=== PATIENT | female | born 2000 | race Caucasian/White ===

== ENCOUNTER → 2024-07-19 | Outpatient (CLI) | payer OTHER, SELFPAY ==
[2024-07-26 10:18] LABS: HPV Reflexed? NOT INDICATED
== END | disposition home or self-care (01) ==
LOC: LABSPEC 14:49
PROVIDERS: Referring Provider Obstetrics & Gynecology; Visit Provider Obstetrics & Gynecology
DX: Z12.4 Encounter for screening for malignant neoplasm of cervix (principal)
CPT/HCPCS: 88175; G0145

== ENCOUNTER → 2025-05-05 | Outpatient (CLI) | payer OTHER, SELFPAY ==
[2025-05-05 12:22] LABS: Hematocrit 44.3 % (37-47); Hemoglobin 14.9 g/dL (12.0-15.0); Immature Granulocytes Count 0.040 X10^3/uL (0.0-0.0); Mean Corp Hgb Conc 33.6 g/dL (32-36); Mean Corpuscular Volume 90.6 fL (81-99); Mean Platelet Vol. 11.3 fl (6.2-12.0); NRBC Flagged by Analyzer 0 % (0-5); Platelet Count 240 K/mm3 (150-450); RBC Distribution Width CV 11.7 % (11.6-14.6); RBC Distribution Width SD 38.7 fl (35.1-43.9); Red Blood Count 4.89 M/mm3 (4.2-5.4); White Blood Count 6.8 K/mm3 (4.4-11.0)
[2025-05-05 13:04] LABS: hCG Titer Quant., Serum < 1 mIU/mL (<9 non-preg)
[2025-05-05 13:12] LABS: AST(SGOT) 19 U/L (<=31); Alanine Aminotransfer ALT/SGPT 12 U/L (<=34); Albumin, Serum 4.8 g/dL (3.5-5.0); Alkaline Phosphatase 62 U/L (35-104); Anion Gap 11 (5-15); BUN 11 mg/dL (4-19); BUN/Creat Ratio 17.2 RATIO (10-20); Calcium,Total 10.1 mg/dL (7.6-11.0); Carbon Dioxide 25.6 mmol/L (21.0-32.0); Chloride 104 mmol/L (98-108); Follicle Stimulating Hormone 7.7 mIU/mL; Globulin 2.9 g/dL (2.2-4.2); Glucose 91 mg/dL (70-99); Potassium 4.0 mmol/L (3.3-5.1); Vitamin D,25 Hydroxy 44.7 ng/mL (30-100)
== END | disposition home or self-care (01) ==
PROVIDERS: Visit Provider Nurse Practitioner Family
DX: Z31.69 Encounter for other general counseling and advice on procreation (principal); Z13.29 Encounter for screening for other suspected endocrine disorder; N80.9 Endometriosis, unspecified; N91.2 Amenorrhea, unspecified
CPT/HCPCS: 36415; 80053; 82306; 82670; 83001; 83002; 84439; 84443; 84702; 85025

== ENCOUNTER → 2025-05-10 | Outpatient (CLI) | payer OTHER, SELFPAY ==
--- OUTSIDE RECORDS SUMMARY | 2025-05-10 10:14 | XMS RPT_ITS | CCD ---
Author Organization [facility] Inform ion Partnership [facility] Care Team Providers Care Analyst Name Role Phone Morris Leahy MD Primary Care Provider Cory Nye MD Primary Care Provider SELF, SELF Referring Unavailable CORY NYE Attending Unavailable MORRIS LEAHY Primary Care Unavailable SELF, SELF Referring Unavailable CORY NYE Primary Care Unavailable CORY NYE Attending Unavailable CORY NYE Primary Care Unavailable TREVON ORDAZ Attending Unavailable Unavailable Primary Care Provider Unavailkelsey e Kay LOWRY, Self Primary Care Provider Unavail able LATOSHA LEDESMA Attending Unavailable REFERRING, SELF Primary Care Unavailable Vivienne Baumann Attending UnavailVivienne Rojas Referring UnavailVivienne Rojas Attending Unavailabl LEANNA Muse Attending Unavailable Allergies Allergy Classification Reported Allergen(s) Allergy Type Date of Onset Reaction(s) Facility (2 sources) Amoxicillin / Clavulanate Drug Allergy 3 Rash, Swelling [facility] Work Phone: (2 sources) Penicillins; Translations: [PENICILLINS] Drug allergy (disorder) 5 [facility] Repository Medications Current Medications Medication Drug Class(es) Dates Sig (Normalized) Sig (Original) acetaminophen 325 mg / HYDROcodone bitartrate 5 mg oral tablet (5 sources) Opioid Agonist Start: 01-06-2022 End: 01-10-2022 take 1-2 tablets by mouth every six hours as needed hydroCODone-acetami nophen 5-325 MG tablet Indications: Pelvic and perineal pain Take 1-2 tablets by mouth every 6 hours as needed for up to 4 days. 20 tablet 0 01/06/2022 Active dicyclomine hydrochloride 10 mg oral capsule (5 sources) Anticholinergic Start: 01-07-2022 take 1 capsule by mouth four times daily as needed for muscle spasms dicyclomine 10 MG capsule Take 1 capsule by mouth 4 times daily as needed for Abdominal Spasms. 30 capsule 0 01/07/2022 Active elagolix 150 mg oral tablet (6 sources) Start: 07-10-2023 take 1 tablet by mouth once daily Elagolix Sodium (Orilissa) 150 MG tablet Indications: Endometriosis determined by laparoscopy Take 1 tablet by mouth daily. 30 tablet 11 07/10/2023 Active Start: 01-07-2022 Elagolix Sodiu m (Orilissa) 200 MG tablet Take 1 tablet by mouth daily. Quant: 4, Lot:[id number], Exp: 12/12/2022 1 tablet 0 01/07/2022 Active [id number] 0.3 ml EPINEPHrine 1 mg/ml auto-injector (2 sources) alpha-Adrenergic Agonist, beta-Adrenergic Agonist, Catecholamine Start: 06-05-2023 EPINEPHrine 0.3 MG/0.3ML Solution Auto-injector injection Inject contents of 1 autoinjector (0.3 mg) into thigh for allergic reactions (hives, lip/tongue/throat swelling, breathing trouble, lightheadedness, passing out or other symptoms of an allergic reaction) and seek medical attention immediately. If symptoms do not resolve after 5 min and still awaiting medical care, inject contents of a second autoinjector. 1 Each 0 06/05/2023 Active Ethinyl Estradiol / Ferrous fumarate / Norethindrone (1 source) Estrogen Start: 01-17-2024 take 1 tablet by mouth once daily norethindrone-ethinyl estradiol-ferrous fumarate (Junel Fe 24) 1 mg-20 mcg (24)/75 mg (4) per tablet Take 1 (one) tablet by mouth daily . 84 tablet 3 01/17/2024 Active ethinyl estradiol 0.02 mg / levonorgestrel 0.1 mg oral tablet (6 sources) Progestin, Estrogen, Progestin-containing Intrauterine Device Start: 01-28-2020 End: 02-04-2021 take 1 tablet by mouth once daily levonorgestrel-ethiny l estradiol 0.1-20 MG-MCG tablet Take 1 tablet by mouth daily. 84 tablet 3 02/04/2021 Active famotidine 40 mg oral tablet (3 sources) Histamine-2 Receptor Antagonist Start: 06-05-2023 take 1 tablet by mouth once daily famotidine 40 MG tablet Take 1 tablet by mouth daily. 20 tablet 0 06/05/2023 Active Start: 06-05-2023 End: 06-05-2023 famotidine (PF) (PEPCID) inj ection 20 mg fluconazole 150 mg oral tablet (3 sources) Azole Antifungal Start: 10-05-2023 fluconazole (DIFLUCAN) 150 MG tablet Take one today and repeat in 3 days . 2 tablet 10/05/2023 Active goserelin 10.8 mg drug implant (2 sources) Gonadotropin Releasing Hormone Receptor Agonist Start: 09-12-2022 End: 09-12-2022 inject 10.8 mg by subcutaneous injection once goserelin 10.8 MG Implant Inject 10.8 mg under the skin once for 1 dose. 1 Each 3 09/12/2022 Active hydrocortisone 25 mg/ml topical cream (2 sources) Corticosteroid Start: 06-05-2023 hydrocortisone 2.5 % Cream Apply BID to rash, Do not apply to genitals or face 20 g 0 06/05/2023 Active norethindrone 0.35 mg oral tablet (1 source) Start: 08-01-2022 take 1 tablet by mouth once daily Norethindrone 0.35 MG tablet Take 1 tablet by mouth daily. 84 tablet 3 08/01/2022 Active predniSONE 20 mg oral tablet (1 source) Start: 06-05-2023 End: 06-10-2023 take 2 tablets by mouth once daily predniSONE 20 MG tablet Take 2 tablets by mouth daily for 5 days. 10 tablet 0 06/05/2023 06/10/2023 Active Completed/Discontinued Medications Medication Drug Class(es) Dates Sig (Normalized) Sig (Original) 1 ml diphenhydrAMINE hydrochloride 50 mg/ml cartridge (1 source) Histamine-1 Receptor Antagonist Start: 06-05-20 End: 06-05-20 diphenhydrAMINE (BENADRYL) injection 50 mg 1 ml ketorolac tromethamine 15 mg/ml cartridge (1 source) Nonsteroidal Anti-inflammatory Drug, Cyclooxygenase Inhibitor Start: 06-05-20 End: 06-05-20 Ketorolac (TORADOL) injection 15 mg 1 ml medroxyPROGESTERone acetate 150 mg/ml injection (5 sources) Progestin Start: 11-27-19 End: 11-27-19 medroxyPROGESTERone (DEPO-PROVERA) injection 300 mg Start: 11-27-2023 End: 11-27-2023 medroxyPROGESTERone (DEPO-VT OVERA) injection 300 mg Start: 07-10-2023 inject 2 mL by intra muscular injection once medroxyPROGESTERone acetate 150 MG/ML Suspension Prefilled Syringe inj syringe Indications: Endometriosis determined by laparoscopy 2 ml every 10 week per intramuscular route 2 mL 4 07/10/2023 Active Start: 09-13-2022 End: 07-10-2023 medroxyPROGESTERone acetate 150 MG/ML Suspension Prefilled Syringe inj syringe Inject 2 mL intramuscularly every 90 Days. 2 mL 3 09/13/2022 07/10/2023 Discontinued (Reorder) methylPREDNISolone 125 mg injection (1 source) Corticosteroid Start: 06-05-2023 End: 06-05-2023 methylPREDNISolone Sodium Succ (SOLU-MEDROL) injection 125 mg 250 ml sodium chloride 9 mg/ml injection (1 source) Start: 06-05-2023 End: 06-05-2023 Sodium chloride 0.9% IV solution 1,000 mL Problems Active Problems Problem Classification Problem Date Documented Date Episodic/Chronic Abdominal pain (7 sources) Pelvic and perineal pain; Translations: [Pelvic and perineal pain] Onset: 09-02-2022 Episodic Allergic reactions (6 sources) Eruption due to drug; Translations: [Generalized skin eruption due to drugs and medicaments taken internally] Onset: 06-05-2023 06-05-2023 Episodic Endometriosis (8 sources) Endometriosis (clinical); Translations: [Endometriosis, unspecified] Onset: 09-02-2022 Chronic Genitourinary symptoms and ill-defined conditions (2 sources) Dysuria; Translations: [Dysuria] Onset: 04-15-2025 Episodic Immunizations and screening for infectious disease (2 sources) Patient encounter status; Translations: [Encounter for immunization] Episodic Menstrual disorders (6 sources) Dysmenorrhea; Translations: [Dysmenorrhea, unspecified] Onset: 09-02-2022 Chronic Other connective tissue disease (1 source) Muscle weakness; Translations: [Muscle weakness (generalized)] Episodic Other screening for suspected conditions (not mental disorders or infectious disease) (1 source) Encounter for screening for malignant neoplasm of cervix; Translations: [Encounter for screening for malignant neoplasm of cervix] Onset: 08-02-2024 Episodic Other skin disorders (1 source) Facial swelling ; Translations: [Localized swelling, mass and lump, head] 06-05-2023 Episodic Other skin disorders (2 sources) Localized swelling, mass and lump, head; Translations: [Localized swelling, mass and lump, head] Onset: 06-05-2023 Episodic Past or Other Problems Problem Classification Problem Date Documented Da te Episodic/Chronic Mood disorders (6 sources) Mood disorders Onset: 02-04-2021 Resolved: 02-04-2021 02-04-2021 Results Test Name Value Interpretation Reference Range Facility Bacteria Ur Culton 5 Bacteria identified Cx Nom (U) ORGANISM ID: 1 10,000 -<50,000 CFU/ml Normal urogenital iva Normal [facility] Comment on above: Performed By: #### 6 30-4 #### [facility] CLIA [id number] [address] [place] [address] OF [facility] CNOVon 04-15-2025 CNOV Office Visit ([facility]) BRITTANI YANG ([id number]) 1 F Date Time Provider Department 04/15/25 5:00 PM LEANNA HUFFMAN During your visit today, we recorded the following information about you: Temperature Pulse Respiration Blood pressure 97.1 degrees 72/minute 16/minute 98/62 Weight 69.8 kg Leanna Huffman APRN.VEGETABLE WASHER 04/15/2025 5:36 PM Signed [facility] Subjective Brittani Servin Celia is a 24 year old female. Patient presents with: Urinary Frequency: burning with urination x 3 days HPI The patient is a 24-year-old female with a history of endometriosis, presenting with dysuria and urinary frequency. Dysuria and Urinary Frequency: - Onset 3 days ago. - Currently taking Macrodantin, obtained in [place]; started on Monday, taking one dose in the morning and one at night. - Reports some improvement with medication but notes it is and feels progress is insufficient. - Denies fever, chills, nausea, or emesis. - Reports mild lower back pain; denies abdominal pain. - Previous similar episode resolved with Macrodantin. - Urine sample showed a small amount of blood, no WBCs. Endometriosis: - Reports irregular menstrual cycles, with the last period in January. - Not currently on control. - Possibility of ; has taken negative tests at home recently. Review of Systems Constitutional: (-) fever, (-) chills Gastrointestinal: (-) nausea, (-) vomiting, (-) abdominal pain Genitourinary: (+) urinary frequency, (+) dysuria Musculoskeletal: (+) low back pain Objective BP 98/62 Pulse 72 Temp 36.2 ?C (97.1 ?F) Resp 16 Wt 69.8 kg (153 lb 14.1 oz) SpO2 99% No past medical history on file. No past surgical history on file. ALLERGIES Penicillins MEDICATIONS - nitrofurantoin monohydrate and macrocrystal (MACROBID) 100 mg capsule Take 1 capsule by mouth two times a day for 5 days. No family history on file. SOCIAL HISTORY[1] Physical Exam Vitals and nursing note reviewed. Constitutional: General: She is not in acute distress. Appearance: Normal appearance. She is not ill-appearing. Cardiovascular: Rate and Rhythm: Normal rate and regular rhythm. Heart sounds: Normal heart sounds. Pulmonary: Effort: Pulmonary effort is normal. No respiratory distress. Breath sounds: Normal breath sounds. No wheezing or rales. Abdominal: General: There is no distension. Palpations: Abdomen is soft. There is no mass. Tenderness: There is no abdominal tenderness. There is no right CVA tenderness, left CVA tenderness or guarding. Skin: General: Skin is warm and dry. Neurological: Mental Status: She is alert. { 1. Urinary frequency (R35.0) 2. Dysuria (R30.0) - Acute urinary frequency and dysuria for 3 days; currently taking Macrodantin obtained in [place] with partial improvement. - Urinalysis shows a small amount of blood, no WBCs. - Urine culture ordered to confirm appropriate antibiotic coverage. - Start new prescription for Macrodantin for 5 days. - Advised patient to maintain adequate hydration. - Instructed patient to complete the full course of antibiotics unless otherwise notified by the clinic based on culture results. - Follow-up with your PCP in 3-5 days if symptoms have not improved or sooner if symptoms worsen - Discussed red flags and need for immediate medical evaluation if any occur. - Discussed supportive care treatment with fluids, rest and analgesia. - Discussed expected course of illness Leanna Huffman APRN.VEGETABLE WASHER and Recording using zealot network software for draft documentation of the visit was discussed with the patient/authorized representative government relations; all questions welcomed and answered. Patient/authorized representative government relations agreed to proceed Differential Diagnoses - UTI is more likely for the following reason(s): consistent with laboratory studies and suggested by HANDP - pyelonephritis is less likely for the following reason(s): HANDP not suggestive and laboratory studies not suggestive - nephrolithisis is less likely for the following reason(s): HANDP not suggestive and laboratory studies not suggestive Disposition The patient was discharged. Procedures [1] Leanna Huffman APRN.VEGETABLE WASHER 04/15/2025 5:36 PM Signed 1. Urinary frequency (R35.0) 2. Dysuria (R30.0) - Acute urinary frequency and dysuria for 3 days; currently taking Macrodantin obtained in [place] with partial improvement. - Urinalysis shows a small amount of blood, no WBCs. - Urine culture ordered to confirm appropriate antibiotic coverage. - Start new prescription for Macrodantin for 5 days. - Advised patient to maintain adequate hydration. - Instructed patient to complete the full course of antibiotics unless otherwise notified by the clinic based on culture results. - A new prescription for nitrofuran (more content not included)... Normal [facility] PAP I-G w/rfx hrHPV-Aptimaon 07-25-2024 ADEQ Comment Normal . [facility] Comment on above: Order Comment: Speci men Comment: [id number] Specimen Comment: No. of containers..01 ThinPrep Vial Result Comment: Sati sfactory for evaluation. No endocervical component is identified. Performed By: #### L 7400.0353 #### [facility] [address] [place], [place], [id number] COMM . Normal . [facility] Comment on above: Order Comment: Speci men Comment: [id number] Specimen Comment: No. of containers..01 ThinPrep Vial Performed By: #### L 7400.0353 #### [facility] [address] [place], [place], [id number] COMMENT Comment Normal . [facility] Comment on above: Order Comment: Speci men Comment: [id number] Specimen Comment: No. of containers..01 ThinPrep Vial Result Comment: This liquid based ThinPrep(R) pap test was screened with the use of an image guided system. Performed By: #### L 7400.0353 #### [facility] [address] [place], [place], [id number] DIAG Comment Normal . [facility] Comment on above: Order Comment: Speci men Comment: [id number] Specimen Comment: No. of containers..01 ThinPrep Vial Result Comment: NEGA TIVE FOR INTRAEPITHELIAL LESION OR MALIGNANCY. FUNGAL ORGANISMS MORPHOLOGICALLY CONSISTENT WITH DARRIUS SPECIES ARE PRESENT. THIS SPECIMEN WAS RESCREENED PART OF OUR ART CONSERVATOR PROGRAM. Performed By: #### L 7400.0353 #### [facility] [address] [place], [place], [id number] HPV RFLX Comment Normal . [facility] Comment on above: Order Comment: Speci men Comment: [id number] Specimen Comment: No. of containers..01 ThinPrep Vial Result Comment: The HPV DNA reflex criteria were not met with this specimen result therefore, no HPV testing was performed. Performed at: [address] [id number] Underwriting Sales Representative: Martina Padilla MD, Phone: [phone] Performed at: [facility] [address] [place] [id number] Underwriting Sales Representative: Alida Maldonado PhD, Phone: [phone] Performed By: #### L 7400.0353 #### [facility] [address] [place], [place], [id number] PAPSMR Comment Normal . [facility] Comment on above: Order Comment: Speci men Comment: [id number] Specimen Comment: No. of containers..01 ThinPrep Vial Result Comment: The Pap smear is a screening test designed to aid in the detection of premalignant and malignant conditions of the uterine cervix. It is not a diagnostic procedure and should not be used as the sole means of detecting cervical cancer. Both false-positive and false-negative reports do occur. Performed By: #### L 7400.0353 #### [facility] [address] [place], [place], [id number] PERFORM Comment Normal . [facility] Comment on above: Order Comment: Speci men Comment: [id number] Specimen Comment: No. of containers..01 ThinPrep Vial Result Comment: Muna Crooks, Collection Correspondent (ASCP) Performed By: #### L 7400.0353 #### [facility] [address] [place], [place], [address] QC REV Comment Normal . [facility] Comment on above: Order Comment: Speci men Comment: [id number] Specimen Comment: No. of containers..01 ThinPrep Vial Result Comment: Anna Obrien Collection Correspondent (ASCP) Performed By: #### L 7400.0353 #### [facility] [address] [place], [place], [address] [employer] Office Visit Reporton 07-19-2024 [employer] Office Visit Report [facility] [address], [address] [place] [address] OFFICE VISIT Date of Service: 07/19/24 MR#: [id number] Acct: [id number] Name: BRITTANI YANG Rep #: [id number] : 2000 Provider: Dr. 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 Is patient in pain?: No Allergies Penicillins Allergy (Mild, Verified 07/19/24 11:34) Hives Medications ???Medication ???Instructions ???Recorded ???Confirmed ???Type norethindrone 1 mg-ethinyl 1 tab PO QDAY #84 tabs 07/19/24 Rx estradiol 20 mcg (24)-iron 75 mg (4) tablet (Светлана 24 Fe) valacyclovir 500 mg tablet 500 mg PO QDAY PRN outbreak #30 07/19/24 Rx (Valtrex) tabs Post menopausal: No Patient : No : No PFSH Medical History (Updated 07/19/24 @ 11:36 by Mary Brush) Endometriosis Genital herpes Surgical History (Updated 07/19/24 @ 11:37 by Mary Brush) S/P laparoscopic appendectomy Social History (Updated 07/19/24 @ 11:38 by Mary Brush) Smoking Status: Never smoker alcohol intake: current details: occasionally substance use type: does not use caffeine: Yes what type of physical activity do you participate in: walking frequency: 3-4 times per week seatbelt use: always do you feel safe at home: Yes additional social history: - Dev History 0 Elective abortions Hx Para Spontaneous abortions Hx # Term Pregnancies Ectopic pregnancies Hx # Pregnancies Multiple births # of living children HPI Encounter for routine gynecological examination Details: BRITTANI YANG is a 23 year old who presents for annual exam. new patient has endometriosis and on ocps. she wants refill in pill and refill in valtrex. Last PAP: 2021 History of abnormal PAP: no Last mammogram: never History of abnormal mammogram: n/a Colon cancer screening: n/a Other preventative health care screenings: followed by pcp Female Reproductive History Cycle Length: 21-35 Bleeding Duration: 5 Questions: metorrhagia: No, sexually active: Yes, dyspareunia: No and PCB: No Menopausal Symptoms: No hot flashes, No night sweats, No weight change, No mood changes, No difficulty concentrating, No sleep problems and No change in libido ROS Const Constitutional: Reports as per HPI; Denies fatigue, increased appetite, poor appetite, night sweats, weight gain or weight loss Cardio Card: Denies chest pain Resp Resp: Denies cough or dyspnea GI GI: Reports as per HPI; Denies abdominal pain, bloating, constipation, nausea or vomiting : Reports as per HPI and other; Denies difficulty voiding, dysuria, hematuria, hot flashes, nipple discharge, pelvic pain, prolapse symptoms, urinary frequency, urinary incontinence, urinary urgency, vaginal discharge, vaginal dryness, vaginal odor or vaginal pruritus Skin Skin/Breast: Denies changing lesions, breast mass, breast pain, breast skin changes or nipple discharge Psych Psych: Denies anxiety, change in libido, depression or difficulty concentrating Exam Const General: cooperative, healthy appearing, comfortable, no acute distress, well developed and well groomed HENIN Head: normal to inspection and normocephalic Ears: hearing grossly normal bilaterally and external ears normal Nose: external nose normal Face and sinus: normal facial exam Neck Neck: normal visual inspection, full ROM and no lymphadenopathy Thyroid: thyroid normal Chest Chest palpation inspection: normal inspection of the chest Breast inspection: normal inspection of the breasts and normal inspection of the axillae Breast palpation: normal palpation of the breasts, normal palpation of the axillae and no axillary lymphadenopathy Resp Effort Inspection: normal respiratory effort GI Inspection: normal to inspection and non-distended Palpation: soft, no hepatosplenomegaly and no guarding General: bladder normal to palpation External Female Exam: normal external appearance, normal appearance of the urethra and no lesions Urethra: normal appearance of the urethra and normal palpation Speculum Exam - Vagina: normal appearance of the vagina and normal vaginal discharge Speculum Exam - Cervix: normal appearance of the cervix, no cervical discharge, no lesions and nontender Bimanual Exam- Vagina Uterus: normal bimanual exam, uterine size normal, bladder normal to palpation, No tender, uterine mobility normal, consistency normal, non-tender and no cervical motion tenderness Bimanual Exam- Adnexa, other: normal adnexae, no masses and non-tend (more content not included)... Normal [facility] CBC, EDIF, PLATELETon 2022 Basophils/100 WBC (Bld) 0.4 % 0.0 - 3.0 % [employer] Eosinophils/100 WBC (Bld) 1.4 % 0.0 - 4.0 % [employer] Erythrocyte distribution width (RBC) [Ratio] 12.4 % 11.5 - 14.5 % [employer] Hematocrit (Bld) [Volume fraction] 43.4 % 37.0 - 47.0 % [employer] Hemoglobin (Bld) [Mass/Vol] 14.8 g/dL 12.0 - 16.0 g/dL [facility] [employer] Lymphocytes/100 WBC (Bld) 12.2 % Low 17.6 - 49.6 % [employer] MCH (RBC) [Entitic mass] 30.5 pg 28.0 - 32.0 pg [facility] [facility] MCHC (RBC) [Mass/Vol] 34.1 g/dL 33.0 - 37.0 g/dL [employer] MCV (RBC) [Entitic vol] 89.5 fL 81.0 - 99.0 fL [facility] Monocytes/100 WBC (Bld) 7.9 % 4.1 - 12.4 % [facility] [employer] Neutrophils/100 WBC (Bld) 78.1 % High 39.4 - 72.5 % [facility] [facility] Platelets (Bld) [#/Vol] 233 10*3/uL [facility] [employer] [facility] RBC (Bld) [#/Vol] 4.85 10*6/uL [facility] SCAN SLIDE NO NO [facility] [employer] [facility] WBC (Bld) [#/Vol] 9.6 10*3/uL [facility] COMPREHENSIVE METABOLIC PROF ILE Noel 06-05-2023 Albumin BCG dye [Mass/Vol] 3.9 g/dL 3.5 - 5.0 g/dL [facility] [facility] Albumin/Globulin [Mass ratio] 1.1 {ratio} Low 1.2 - 1.5 [employer] ALP [Catalytic activity/Vol] 56 U/L 38 - 126 U/L [facility] ALT No additional P-5'-P [Catalytic activity/Vol] 15 U/L 7 - 35 U/L [facility] Anion gap [Moles/Vol] 12.8 mmol/L [facility] AST [Catalytic activity/Vol] 25 U/L 10 - 42 U/L [facility] Bilirubin [Mass/Vol] 1.7 mg/dL High 0.3 - 1.2 mg/dL [facility] Calcium [Mass/Vol] 9.1 mg/dL 8.4 - 10. 2 mg/dL [facility] Chloride [Moles/Vol] 107 mmol/L [facility] CO2 [Moles/Vol] 23 mmol/L [facility] Creatinine [Mass/Vol] 0.9 mg/dL 0.4 - 1.1 mg/dL [facility] GFR/1.73 sq M.predicted MDRD (S/P/Bld) [Vol rate/Area] mL/min/{1.73_m2} [facility] Comment on above: Estimated Glomerular filtration Rate Reference Ranges: GFR, mL/min/1.73m2 >= 60 Adequate 30 - 59 Moderately decreased GFR 15 - 29 Severely decreased GFR <18 Kidney failure (or dialysis) GFR calculated using abbreviated MDRD formula. MDRD equation not suitable for patients who are under 18, have unstable creatinine concentrations Globulin (S) [Mass/Vol] 3.4 g/dL High 2.9 - 3.3 g/dL [facility] Glucose [Mass/Vol] 146 mg/dL High 70 - 126 mg/dL [facility] Comment on above: Reference Range for FASTING patients is 70-100 mg/dL Potassium [Moles/Vol] 3.8 mmol/L [facility] Protein [Mass/Vol] 7.3 g/dL 6.4 - 8.3 g/dL [facility] Sodium [Moles/Vol] 139 mmol/L [facility] Urea nitrogen [Mass/Vol] 19 mg/dL 7 - 22 mg/dL [facility] Complete Blood Counton 06-05 Basophils/100 WBC (Bld) 0.4 % Normal 0.0-3.0 [facility] Comment on above: Performed By: #### 1 [id number], [id number] #### [facility] [address] [place] [address] Eosinophils/100 WBC (Bld) 1.4 % Normal 0.0-4.0 [facility] Comment on above: Performed By: #### 1 [id number], [id number] #### [facility] [address] [place] [address] Erythrocyte distribution width (RBC) [Ratio] 12.4 % Normal 11.5-14.5 [facility] Comment on above: Performed By: #### 1 [id number], [id number] #### [facility] [address] [place] [address] Hematocrit (Bld) [Volume fraction] 43.4 % Normal 37.0-47.0 [facility] Comment on above: Performed By: #### 1 [id number], [id number] #### [facility] [address] [place] [address] Hemoglobin (Bld) [Mass/Vol] 14.8 g/dL Normal 12.0-16.0 [facility] Comment on above: Performed By: #### 1 [id number], [id number] #### [facility] [address] [place] [address] Lymphocytes/100 WBC (Bld) 12.2 % Low 17.6-49.6 [facility] Comment on above: Performed By: #### 1 [id number], [id number] #### [facility] [address] [place] [address] MCH (RBC) [Entitic mass] 30.5 pg Normal 28.0-32.0 [facility] Comment on above: Performed By: #### 1 [id number], [id number] #### [facility] [address] [place] [address] MCHC (RBC) [Mass/Vol] 34.1 g/dL Normal 33.0-37.0 [facility] Comment on above: Performed By: #### 1 [id number], [id number] #### [facility] [address] [place] [address] MCV (RBC) [Entitic vol] 89.5 fL Normal 81.0-99.0 [facility] Comment on above: Performed By: #### 1 [id number], [id number] #### [facility] [address] [place] [address] Monocytes/100 WBC (Bld) 7.9 % Normal 4.1-12.4 [facility] Comment on above: Performed By: #### 1 [id number], [id number] #### [facility] [address] [place] [address] Neutrophils/100 WBC (Bld) 78.1 % High 39.4-72.5 [facility] Comment on above: Performed By: #### 1 [id number], [id number] #### [facility] [address] [place] [address] PLT 233 thou/cumm Normal 130-400 [facility] Comment on above: Performed By: #### 1 [id number], [id number] #### [facility] [address] [place] [address] RBC 4.85 mil/cumm Normal 4.20-5.40 [facility] Comment on above: Performed By: #### 1 [id number], [id number] #### [facility] [address] [place] [address] SCAN NO Normal NO [facility] Comment on above: Performed By: #### 1 [id number], [id number] #### [facility] [address] [place] [address] WBC 9.6 thou/cumm Normal 4.8-10.8 [facility] Comment on above: Performed By: #### 1 [id number], [id number] #### [facility] [address] [place] [address] Comprehensive Metabolic Prof luis carlos Cohen 06-05-2023 Albumin [Mass/Vol] 3.9 g/dL Normal 3.5-5.0 [facility] Comment on above: Performed By: #### 1 750505, [id number] #### [facility] [address] [place] [address] Albumin/Globulin [Mass ratio] 1.1 {ratio} Low 1.2-1.5 [facility] Comment on above: Performed By: #### 1 [id number], [id number] #### [facility] [address] [place] [address] ALP [Catalytic activity/Vol] 56 U/L Normal 38-126 [facility] Comment on above: Performed By: #### 1 [id number], [id number] #### [facility] [address] [place] [address] ALT [Catalytic activity/Vol] 15 U/L Normal 7-35 [facility] Comment on above: Performed By: #### 1 [id number], [id number] #### [facility] [address] [place] [address] Anion gap [Moles/Vol] 12.8 mmol/L Normal 10.0-20.0 [facility] Comment on above: Performed By: #### 1 638157, [id number] #### [facility] [address] [place] [address] AST [Catalytic activity/Vol] 25 U/L Normal 10-42 [facility] Comment on above: Performed By: #### 1 [id number], [id number] #### [facility] [address] [place] [address] BILI 1.7 mg/dL High 0.3-1.2 [facility] Comment on above: Performed By: #### 1 [id number], [id number] #### [facility] [address] [place] [address] Calcium [Mass/Vol] 9.1 mg/dL Normal 8.4-10.2 [facility] Comment on above: Performed By: #### 1 [id number], [id number] #### [facility] [address] [place] [address] Chloride [Moles/Vol] 107 mmol/L Normal 98-107 [facility] Comment on above: Performed By: #### 1 [id number], [id number] #### [facility] [address] [place] [address] CO2 [Moles/Vol] 23 mmol/L Normal 22-31 [facility] Comment on above: Performed By: #### 1 [id number], [id number] #### [facility] [address] [place] [address] Creatinine [Mass/Vol] 0.9 mg/dL Normal 0.4-1.1 [facility] Comment on above: Performed By: #### 1 763142, [id number] #### [facility] [address] [place] [address] GFR/1.73 sq M.predicted among non-blacks MDRD (S/P/Bld) [Vol rate/Area] mL/min/{1.73_m2} Normal [facility] Comment on above: Result Comment: Viktoria mated Glomerular filtration Rate Reference Ranges: GFR, mL/min/1.73m2 >= 60 Adequate 30 - 59 Moderately decreased GFR 15 - 29 Severely decreased GFR <18 Kidney failure (or dialysis) GFR calculated using abbreviated MDRD formula. MDRD equation not suitable for patients who are under 18, have unstable creatinine concentrations Performed By: #### 1 [id number], [id number] #### [facility] [address] [place] [address] Globulin (S) [Mass/Vol] 3.4 g/dL High 2.9-3.3 [facility] Comment on above: Performed By: #### 1 [id number], [id number] #### [facility] [address] [place] [address] Glucose [Mass/Vol] 146 mg/dL High 70-126 [facility] Comment on above: Result Comment: Refe rence Range for FASTING patients is 70-100 mg/dL Performed By: #### 1 [id number], [id number] #### [facility] [address] [place] [address] Potassium [Moles/Vol] 3.8 mmol/L Normal 3.5-5.1 [facility] Comment on above: Performed By: #### 1 557709, [id number] #### [facility] [address] [place] [address] Protein [Mass/Vol] 7.3 g/dL Normal 6.4-8.3 [facility] Comment on above: Performed By: #### 1 630787, [id number] #### [facility] [address] [place] [address] Sodium [Moles/Vol] 139 mmol/L Normal 136-145 [facility] Comment on above: Performed By: #### 1 [id number], [id number] #### [facility] [address] [place] [address] Urea nitrogen [Mass/Vol] 19 mg/dL Normal 7-22 [facility] Comment on above: Performed By: #### 1 [id number], [id number] #### [facility] [address] [place] [address] No Panel Informationon 06-05 Interpretation and review of laboratory results Abnormal [facility] [employer] No Panel Informationon 04-08 [facility] [employer] Work Phone: POCT GLUCOSEon 04-08-2022 Glucose [Mass/Vol] 106 mg/dL Abnormal 70 - 99 mg/dL [facility] Phone: Interpretation and review of laboratory results Abnormal [facility] Phone: POCT HEMOGLOBINon 04-08-2022 Hemoglobin.other (Bld) [Mass fraction] 13.3 g/dL 11.7 - 15.5 g/dL [facility] Work Phone: POCT URINE DIPSTICK AUTOMATE Don 04-08-2022 Amorphous sediment LM Ql (Urine sed) [facility] Phone: Appearance (U) clear [facility] [employer] Work Phone: Bacteria LM Ql (Urine sed) [facility] [employer] Work Phone: Bilirubin Ql (U) Negative [facility] [employer] Work Phone: Casts LM.LPF (Urine sed) [#/Area] [facility] Phone: Color (U) yellow [facility] Phone: Crystals LM Nom (Urine sed) [facility] Phone: Epithelial cells.squamous LM.HPF (Urine sed) [#/Area] [facility] [employer] Work Phone: Flow cytometry specialist review Jorge Luis (Unsp spec) [Interp] [facility] [employer] Work Phone: Glucose Auto test strip (U) [Mass/Vol] Negative mg/dL [facility] Phone: Ketones [Mass/Vol] Negative mg/dL [facility] [employer] Work Phone: Leukocyte esterase Qn (U) [facility] Phone: Leukocyte esterase Test strip Ql (U) Negative [facility] Phone: Microscopic observation Gram stain Nom (Bronch spec) [facility] Phone: Nitrite Ql (U) Negative [facility] [employer] Work Phone: pH (U) 6.0 [pH] 5 - 7 [facility] Phone: Protein Ql (U) Negative mg/dL [facility] [employer] Work Phone: RBC LM.HPF (Urine sed) [#/Area] [facility] Phone: RBC Ql (U) Negative [facility] [employer] Work Phone: Specific gravity (U) [Rel density] 1.020 1.001 - 1.035 [facility] [employer] Work Phone: Transitional cells LM Ql (Urine sed) [facility] [employer] Work Phone: Urobilinogen Qn (U) Negative [facility] Work Phone: WBC LM.HPF (Urine sed) [#/Area] [facility] [employer] Work Phone: [facility] [employer] Work Phone: URINE CULTUREon 01-01-2022 Bacteria identified Cx Nom (U) SEE BELOW [facility] [employer] Comment on above: Source: urine, clean catch Site: clean void Collected: 12/30/21 13:59 Current Antibiotics: not stated Antibiotics comment: STATUS OF ORDERED AND REPORTED TESTS URINE CULTURE FINAL 01/01/22 URINE CULTURE FINAL 01/01/22 07:52 01/01/22 Mixed growth. The mixture of organisms present represents both organisms that may cause urinary tract infections and organisms that are not a common cause of urinary tract infections and are possibly skin iva or distal urethral iva. [facility] [employer] POCT URINE DIPSTICK AUTOMATE Don 12-30-2021 Amorphous sediment LM Ql (Urine sed) [facility] [employer] Appearance (U) clear [facility] [employer] Bacteria LM Ql (Urine sed) [facility] [employer] Bilirubin Ql (U) Negative [facility] [employer] Casts LM.LPF (Urine sed) [#/Area] [facility] [employer] Color (U) yellow [facility] [employer] Crystals LM Nom (Urine sed) [facility] [employer] Epithelial cells.squamous LM.HPF (Urine sed) [#/Area] [facility] [employer] Flow cytometry specialist review Jorge Luis (Unsp spec) [Interp] [facility] [employer] Glucose Auto test strip (U) [Mass/Vol] Negative mg/dL [facility] Ketones [Mass/Vol] Negative mg/dL [place] [facility] [employer] Leukocyte esterase Qn (U) [facility] [employer] Leukocyte esterase Test strip Ql (U) Negative [facility] [employer] Microscopic observation Gram stain Nom (Bronch spec) [facility] [employer] Nitrite Ql (U) Negative [facility] [employer] pH (U) 6.0 [pH] [facility] [employer] Protein Ql (U) Negative mg/dL [facility] [employer] RBC LM.HPF (Urine sed) [#/Area] [facility] [employer] RBC Ql (U) trace [facility] [employer] Specific gravity (U) [Rel density] 1.010 [facility] [employer] Transitional cells LM Ql (Urine sed) [facility] [employer] Urobilinogen Qn (U) Negative [facility] [employer] WBC LM.HPF (Urine sed) [#/Area] [facility] Vital Signs Date Time Vital Sign Value Performing Clinician Faci lity 07-10-2023 13:13-0500 Body mass index (BMI) [Ratio] 22.34 kg/m2 Cory Nye MD Work Phone: [facility] [employer] 07-10-2023 13:13-0500 Body weight 62.78 kg Cory Nye MD Work Phone: [facility] [employer] 07-10-2023 13:13-0500 Diastolic blood pressure 64 mm[Hg] Cory Nye MD Work Phone: [facility] [employer] 07-10-2023 13:13-0500 Respiratory rate 18 /min Cory Nye MD Work Phone: [facility] [employer] 07-10-2023 13:13-0500 Systolic blood pressure 122 mm[Hg] Cory Nye MD Work Phone: [facility] [employer] 06-05-2023 01:00-0500 Diastolic blood pressure 64 mm[Hg] [employer] Work Phone: [facility] [employer] 06-05-2023 01:00-0500 Heart rate 108 /min Quora DO Work Phone: [facility] [employer] 06-05-2023 01:00-0500 Respiratory rate 15 /min Avensoss DO Work Phone: [facility] [employer] 06-05-2023 01:00-0500 SaO2% (BldA) [Mass fraction] 99 % Avensoss DO Work Phone: [facility] 06-05-2023 01:00-0500 Systolic blood pressure 115 mm[Hg] [facility] [employer] Work Phone: [facility] [employer] 06-05-2023 00:37-0500 Body height 167.6 cm Trevon Visualeadstella DO Work Phone: [facility] 06-05-2023 00:37-0500 Body mass index (BMI) [Ratio] 21.6 kg/m2 Trevon Visualeadstella DO Work Phone: [facility] 06-05-2023 00:37-0500 Body temperature 100 [degF] Trevon Visualeadstella DO Work Phone: [facility] 06-05-2023 00:37-0500 Body weight 60.7 kg Trevon Visualeadstella [employer] Work Phone: [facility] 08-31-2022 13:26-0400 Body height 167.6 cm Cory Nye MD Work Phone: [facility] 08-31-2022 13:26-0400 Body mass index (BMI) [Ratio] 20.95 kg/m2 Cory Nye MD Work Phone: [facility] 08-31-2022 13:26-0400 Body weight 58.88 kg Cory Nye MD Work Phone: [facility] [employer] 08-31-2022 13:26-0400 Diastolic blood pressure 60 mm[Hg] Cory Nye MD Work Phone: [facility] 08-31-2022 13:26-0400 Respiratory rate 20 /min Cory Nye MD Work Phone: [facility] 08-31-2022 13:26-0400 Systolic blood pressure 100 mm[Hg] Cory Nye MD Work Phone: [facility] 04-08-2022 13:10-0400 Body mass index (BMI) [Ratio] 19.85 kg/m2 Latoshaaries Ledesma [employer]ZING MACHINE SETTERCearna Work Phone: [facility] 04-08-2022 13:10-0400 Body temperature 98.91 [degF] Latosha Tillatoba 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 Work Phone: [facility] [employer] [facility] 04-08-2022 13:10-0400 Body weight 55.79 kg Latosha Ledesma 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 Work Phone: [facility] [employer] 04-08-2022 13:10-0400 Diastolic blood pressure 68 mm[Hg] Latosha Ledesma 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 Work Phone: [facility] [employer] 04-08-2022 13:10-0400 Systolic blood pressure 104 mm[Hg] Latosha Ledesma 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 Work Phone: [facility] [employer] 01-07-2022 17:26-0400 Body temperature 98.01 [degF] Darrin Craig MD Work Phone: [facility] [employer] 01-07-2022 17:26-0400 Diastolic blood pressure 78 mm[Hg] Darrin Craig MD Work Phone: [facility] [employer] 01-07-2022 17:26-0400 Heart rate 78 /min Darrin Craig MD Work Phone: [facility] [employer] 01-07-2022 17:26-0400 Respiratory rate 14 /min Darrin Craig MD Work Phone: [facility] [employer] 01-07-2022 17:26-0400 SaO2% (BldA) [Mass fraction] 100 % Darrin Craig MD Work Phone: [facility] [employer] 01-07-2022 17:26-0400 Systolic blood pressure 118 mm[Hg] Darrin Craig MD Work Phone: [facility] [employer] 01-07-2022 17:24-0400 Body height 167.6 cm Darrin Craig MD Work Phone: [facility] [employer] 01-07-2022 17:24-0400 Body mass index (BMI) [Ratio] 20.76 kg/m2 Darrin Craig MD Work Phone: [facility] [employer] 01-07-2022 17:24-0400 Body weight 58.33 kg Darrin Craig MD Work Phone: [facility] [employer] 12-30-2021 13:29-0400 Body mass index (BMI) [Ratio] 20.27 kg/m2 Latosha Baltazar 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 Work Phone: [employer] 12-30-2021 13:29-0400 Body temperature 97.5 [degF] Latosha Tillatoba 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 Work Phone: [employer] 12-30-2021 13:29-0400 Body weight 56.97 kg Latosha Baltazar 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 Work Phone: [facility] 12-30-2021 13:29-0400 Diastolic blood pressure 64 mm[Hg] Latosha Tillatoba 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 Work Phone: [employer] 12-30-2021 13:29-0400 Respiratory rate 18 /min Latosha Tillatoba 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 Work Phone: [employer] 12-30-2021 13:29-0400 Systolic blood pressure 124 mm[Hg] Latosha Tillatoba 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 Work Phone: [facility] 02-04-2021 09:37-0400 Body mass index (BMI) [Ratio] 20.5 kg/m2 Latosha Nobleber 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 Work Phone: [employer] 02-04-2021 09:37-0400 Body temperature 98.01 [degF] Latosha Tillatoba 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 Work Phone: [employer] 02-04-2021 09:37-0400 Body weight 57.61 kg Latosha Baltazar 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 Work Phone: [facility] 02-04-2021 09:37-0400 Diastolic blood pressure 64 mm[Hg] Latosha Tillatoba 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 Work Phone: [employer] 02-04-2021 09:37-0400 Respiratory rate 18 /min Latosha Tillatoba 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 Work Phone: [employer] 02-04-2021 09:37-0400 Systolic blood pressure 118 mm[Hg] Latosha Tillatoba 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 Work Phone: [facility] [employer] Encounters Encounter Date Encounter Type Care Provider Facility Start: 04-15-2025 End: 04-15-2025 [facility] Start: 07-19-2024 Encounter for gynecological examination (general) (routine) without abnormal findings Vivienne Baumann [facility] Start: 07-19-2024 End: 07-19-2024 ambulatory Vivienne Baumann Facility:[facility] Start: 07-19-2024 End: 07-19-2024 ambulatory [facility] Start: 01-17-2024 End: 01-17-2024 Orders Only Latosha Ledesma VEGETABLE WASHER Work Phone: [facility] Start: 11-27-2023 End: 11-27-2023 Office outpatient visit 5 minutes Latosha Ledesma VEGETABLE WASHER Work Phone: [facility] Comment on above: Endometriosis (Prima ry Dx) Start: 11-27-2023 End: 11-27-2023 ambulatory LATOSHA LEDESMA [facility] Start: 10-05-2023 Orders Only Latosha isaac VEGETABLE WASHER Work Phone: [facility] Start: 09-26-2023 Documentation procedure Latosha Ledesma VEGETABLE WASHER Work Phone: [facility] Start: 07-10-2023 ambulatory SELF SELF [facility] Start: 07-10-2023 End: 07-10-2023 Office outpatient visit 15 minutes Cory Nye MD Work Phone: [facility] [employer] Comment on above: Endometriosis determ ined by laparoscopy (Primary Dx); Dysmenorrhea; Pelvic and perineal pain Start: 06-05-2023 End: 06-05-2023 Emergency department patient visit CORY NYE [facility] Start: 06-05-2023 End: 06-05-2023 Emergency department patient visit Trevon Ordaz DO Work Phone: [facility] Start: 08-31-2022 ambulatory SELF SELF [facility] Start: 08-31-2022 End: 08-31-2022 Office outpatient visit 25 minutes Cory Nye MD Work Phone: [facility] [employer] Comment on above: Endometriosis determ ined by laparoscopy (Primary Dx); Dysmenorrhea; Pelvic and perineal pain Start: 04-08-2022 End: 04-08-2022 Office outpatient visit 10 minutes Latosha Ledesma BRAZING MACHINE SETTERCearna Work Phone: [facility] [employer] Comment on above: Muscle weakness (June bryan Dx) Start: 01-07-2022 End: 01-07-2022 Emergency department patient visit Darrin Craig MD Work Phone: [facility] Start: 12-30-2021 End: 12-30-2021 Office outpatient visit 15 minutes Latosha Damien [employer] Work Phone: [facility] [employer] Comment on above: Pelvic and perineal pain (Primary Dx); Encounter for gynecological examination with abnormal finding; Dysuria; Screen for sexually transmitted diseases Start: 12-30-2021 End: 12-30-2021 Patient encounter status Latosha Ledesma BRAZING MACHINE SETTERCearna Work Phone: [facility] [employer] Start: 02-04-2021 End: 02-04-2021 Patient encounter status Latosha Ledesma BRAZING MACHINE SETTER[employer]earna Work Phone: [facility] [employer] Start: 02-04-2021 End: 02-04-2021 Periodic preventive med est patient 18-39 yrs Latosha Quezada [place] BRAZING MACHINE SETTERCearna Work Phone: [facility] [employer] Comment on above: Encounter for gyneco logical examination with abnormal finding (Primary Dx); Encounter for vaccination; Dysmenorrhea Procedures Date Procedure Procedure Detail Performing Clinician Start: 06-05-2023 Chem. metabolic func tion tests Trevon Ordaz DO Work Phone: Start: 06-05-2023 Complete blood count with white cell differential, automated Trevon Ordaz DO Work Phone: Start: 04-08-2022 Urnls dip stick/tabl et rgnt auto w/o microscopy Latosha Ledesma 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 Work Phone: Start: 04-08-2022 Blood count hemoglobin Latosha Ledesma 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 Work Phone: Start: 12-30-2021 Urnls dip stick/tabl et rgnt auto w/o microscopy Latosha Ledesma 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 Work Phone: Start: 12-30-2021 Culture bacterial quanttative colony count urine Latosha Ledesma APRN-VEGETABLE WASHER Work Phone: Start: 12-30-2021 Microscopic observat ion [Identifier] in Cervix by Cyto stain Latosha Ledesma CNP Work Phone: Plan of Treatment Date Care Activity Detail Author Start: 12-30-2024 Screening for malign ant neoplasm of cervix Pap Smear [facility] Start: 02-18-2024 Influenza vaccination [facility] Start: 02-17-2023 COVID-19 VACCINE ( season) COVID-19 VACCINE ( season) [facility] Start: 02-17-2023 Influenza vaccination INFLUENZA VACC INE (#1) [facility] Start: 12-30-2022 GONORRHEA SCREEN GONORRHEA SCREEN [facility] Start: 12-30-2022 Screening for Chlamy krystyna trachomatis [facility] Start: 12-30-2022 Screening for malign ant neoplasm of cervix CERVICAL CANCER SCREENING DISCUSSION [facility] Start: 12-24-[address] [facility] Start: 02-17-2022 Influenza vaccination INFLUENZA VACC INE (#1) [facility] Start: 02-04-2022 History and physical examination, annual for health maintenance Wellness Visit [facility] Start: 12-30-2021 End: 12-30-2022 US Pelvis transvaginal US TRANSVAGINAL LIMITED Imaging Routine Pelvic and perineal pain Expected: 12/30/2021, Expires: 12/30/2022 [facility] [employer] Comment on above: Expected: 12/30/2021 , Expires: 12/30/2022 Start: 2021 Screening for malign ant neoplasm of cervix CERVICAL CANCER SCREENING DISCUSSION [facility] Start: 02-17-2021 Influenza vaccination INFLUENZA VACC INE (#1) [facility] Start: 02-04-2021 End: 02-04-2022 HEPATITIS B SURFACE ANTIBODY HEPATITIS B SURFACE ANTIBODY Lab Routine Encounter for vaccination Expected: 02/04/2021, Expires: 02/04/2022 [facility] Comment on above: Expected: 02/04/2021 , Expires: 02/04/2022 Start: 02-04-2021 End: 02-04-2022 HEPATITIS B SURFACE ANTIGEN HEPATITIS B SURFACE ANTIGEN Lab Routine Encounter for vaccination Expected: 02/04/2021, Expires: 02/04/2022 [facility] Comment on above: Expected: 02/04/2021 , Expires: 02/04/2022 Start: 02-04-2021 End: 02-04-2022 M TUBERCULOSIS BY QUANTIFERON, BLD M TUBERCULOSIS BY QUANTIFERON, BLD Lab Routine Encounter for vaccination Expected: 02/04/2021, Expires: 02/04/2022 [facility] Work Phone: Comment on above: Expected: 02/04/2021 , Expires: 02/04/2022 Start: 2018 Hepatitis C screening Hepatitis C Sc reening [facility] Start: 2016 Screening for Chlamy krystyna trachomatis CHLAMYDIA SCREEN [facility] Start: 09-15-[address] [facility] Start: 09-15-2015 Vaccination for nicole n papillomavirus HPV Vaccines (1 - 3-dose series) [facility] Start: 2012 Depression screening using PHQ-9 (Patient Health Questionnaire 9) score [facility] Start: 09-15-2011 Vaccination for nicole n papillomavirus HPV VACCINE ADOL (1 - 2-dose series) [facility] Start: 03-17-2001 COVID-19 VACCINE (#1) COVID-19 VACCI NE (#1) [facility] Start: 2000 GONORRHEA SCREEN GONORRHEA SCREEN [facility] Start: 2000 Hepatitis C antibody , confirmatory test HEPATITIS C VIRUS SCREENING [facility] Start: 2000 Hepatitis C screening HEPATITI S C VIRUS SCREENING [facility] CT NG PROBE THIN PREP CT NG PROB E THIN PREP Cytology Routine Screen for sexually transmitted diseases Ordered: 12/30/2021 [facility] Comment on above: Ordered: 12/30/2021 Cytology Cervical or vaginal smear or scraping study CERVICAL OR VAGINAL CYTOPATH PAP SMEAR Cytology Routine Encounter for gynecological examination with abnormal finding Ordered: 12/30/2021 [facility] Comment on above: Ordered: 12/30/2021 Immunizations Immunization Date Immunization Notes Care Provider Hannah wilkes 01-12-2021 varicella virus vaccine Shan e Baltazar BRAZING MACHINE SETTER-[facility] Work Phone: [facility] 01-22-2018 meningococcal oligosaccharide (groups A, C, Y and W-135) diphtheria toxoid conjugate vaccine (MCV4O) Latosha Baltazar BRAZING MACHINE SETTER-[facility] Work Phone: [facility] 12-24-2012 tetanus toxoid, redu jeffery diphtheria toxoid, and acellular pertussis vaccine, adsorbed Latosha Tillatoba BRAZING MACHINE SETTER-[facility] Work Phone: [facility] 04-09-2010 influenza, seasonal, injectable, preservative free Latosha Tillatoba BRAZING MACHINE SETTER-[facility] Work Phone: [facility] 04-09-2010 influenza virus vacc ine, unspecified formulation Latosha Tillatoba BRAZING MACHINE SETTER-[facility] Work Phone: [facility] 10-14-2005 diphtheria, tetanus toxoids and acellular pertussis vaccine, unspecified formulation Latosha Baltazar BRAZING MACHINE SETTER[facility] Work Phone: [facility] 10-14-2005 measles, mumps and r ubella virus vaccine Latosha Tillatoba BRAZING MACHINE SETTER-[facility] Work Phone: [facility] 10-14-2005 poliovirus vaccine, inactivated Latosha Baltazar BRAZING MACHINE SETTER-[facility] Work Phone: [facility] 12-17-2001 diphtheria, tetanus toxoids and acellular pertussis vaccine, unspecified formulation Latosha Tillatoba BRAZING MACHINE SETTER-[facility] Work Phone: [facility] 12-17-2001 haemophilus influenz ae type b vaccine, conjugate unspecified formulation Latosha Baltazar BRAZING MACHINE SETTER-[facility] Work Phone: [facility] 09-17-2001 measles, mumps and r ubella virus vaccine Latosha Baltazar 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 Work Phone: [facility] 09-17-2001 poliovirus vaccine, inactivated Latosha Baltazar 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 Work Phone: [facility] 09-17-2001 varicella virus vaccine Shan e Tillatoba 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 Work Phone: [facility] 04-09-2001 diphtheria, tetanus toxoids and acellular pertussis vaccine, unspecified formulation Latosha Tillatoba 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 Work Phone: [facility] 04-09-2001 haemophilus influenz ae type b conjugate and Hepatitis B vaccine Latosha Baltazar 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 Work Phone: [facility] 02-05-2001 diphtheria, tetanus toxoids and acellular pertussis vaccine, unspecified formulation Latosha Tillatoba 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 Work Phone: [facility] 02-05-2001 haemophilus influenz ae type b vaccine, HbOC conjugate Latosha Baltazar 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 Work Phone: [facility] 02-05-2001 poliovirus vaccine, inactivated Latosha Baltazar 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 Work Phone: [facility] 2000 diphtheria, tetanus toxoids and acellular pertussis vaccine, unspecified formulation Latosha Tillatoba 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 Work Phone: [facility] 2000 haemophilus influenz ae type b vaccine, PRP-OMP conjugate Latosha Tillatoba 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 Work Phone: 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 2000 poliovirus vaccine, inactivated Latosha Tillatoba 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 Work Phone: [facility] 2000 hepatitis B vaccine, pediatric or pediatric/adolescent dosage Latosha Tillatoba 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 Work Phone: [facility] Payers Date Payer Category Payer Unknown [id number] 2024 Self-pay 2024 Unknown [id number] 2023 Unknown [facility]* [id number] 2023-Present [phone] [address] [place] [address] [id number] Unknown [id number] Unknown [id number] Social History Date Type Detail Facility Start: 01-28-2020 End: 12-30-2021 Tobacco smoking status NHIS Never smoker [employer] Start: 01-28-2020 End: 12-30-2021 Tobacco use and exposure Never used [employer] Start: 02-04-2021 Alcohol intake Lifetime non-drinker (finding) [employer] Start: 01-28-2020 History SDOH Alcohol Frequency 1 [employer] Start: 2000 Sex Assigned At Not on file [employer] Start: 12-28-2021 End: 01-07-2022 Exposure to SARS-CoV-2 (event) Not sure [employer] Start: 12-30-2021 End: 07-10-2023 Alcohol intake Ex-drinker (finding) [employer] Start: 01-28-2020 End: 02-04-2021 History of Social function [facility] Work Phone: Start: 01-28-2020 End: 02-04-2021 Alcohol Use Disorder Identification Test - Consumption [AUDIT-C] [employer] Phone: How often to you hav e a drink containing alcohol? Never [employer] Phone: Average Number of Drinks Not on file [employer] Phone: Start: 2000 Sex Assigned At Female [employer] Start: 06-05-2023 Gender identity Identifies as female gender (finding) [employer] Phone: Tobacco smoking stat us NHIS Tobacco smoking consumption unknown [facility] Work Phone: Clinical Notes 02-04-2021 to 04-15-2025 Latosha Ledesma CNP - 11/27/2023 9:42 AM Latosha Paredes CNP - 09/26/2023 8:46 AM Celeste Nye MD - 07/10/2023 1:00 PM ESTDischarge InstructionsAttachmentsDischarge Instructions Note Date & Type Note Facility 04-15-2025 Note HNO ID: [id number] Author: LEANNA HUFFMAN APRN.[employer]GETABLE W[employer]ER Service: ? Author Type: Nurse Practitioner Type: Progress Notes Filed: 04/15/2025 17:36 Note Text: [facility] Yang is a 24 year old female. Patient presents with: Urinary Frequency: burning with urination x 3 days HPI The patient is a 24-year-old female with a history of endometriosis, presenting with dysuria and urinary frequency. Dysuria and Urinary Frequency: - Onset 3 days ago. - Currently taking Macrodantin, obtained in [place]; started on Monday, taking one dose in the morning and one at night. - Reports some improvement with medication but notes it is and feels progress is insufficient. - Denies fever, chills, nausea, or emesis. - Reports mild lower back pain; denies abdominal pain. - Previous similar episode resolved with Macrodantin. - Urine sample showed a small amount of blood, no WBCs. Endometriosis: - Reports irregular menstrual cycles, with the last period in January. - Not currently on control. - Possibility of ; has taken negative tests at home recently. Review of Systems Constitutional: (-) fever, (-) chills Gastrointestinal: (-) nausea, (-) vomiting, (-) abdominal pain Genitourinary: (+) urinary frequency, (+) dysuria Musculoskeletal: (+) low back pain Objective BP 98/62 Pulse 72 Temp 36.2 ?C (97.1 ?F) Resp 16 Wt 69.8 kg (153 lb 14.1 oz) SpO2 99% No past medical history on file. No past surgical history on file. ALLERGIES Penicillins MEDICATIONS - nitrofurantoin monohydrate and macrocrystal (MACROBID) 100 mg capsule Take 1 capsule by mouth two times a day for 5 days. No family history on file. SOCIAL HISTORY[1] Physical Exam Vitals and nursing note reviewed. Constitutional: General: She is not in acute distress. Appearance: Normal appearance. She is not ill-appearing. Cardiovascular: Rate and Rhythm: Normal rate and regular rhythm. Heart sounds: Normal heart sounds. Pulmonary: Effort: Pulmonary effort is normal. No respiratory distress. Breath sounds: Normal breath sounds. No wheezing or rales. Abdominal: General: There is no distension. Palpations: Abdomen is soft. There is no mass. Tenderness: There is no abdominal tenderness. There is no right CVA tenderness, left CVA tenderness or guarding. Skin: General: Skin is warm and dry. Neurological: Mental Status: She is alert. { 1. Urinary frequency (R35.0) 2. Dysuria (R30.0) - Acute urinary frequency and dysuria for 3 days; currently taking Macrodantin obtained in [place] with partial improvement. - Urinalysis shows a small amount of blood, no WBCs. - Urine culture ordered to confirm appropriate antibiotic coverage. - Start new prescription for Macrodantin for 5 days. - Advised patient to maintain adequate hydration. - Instructed patient to complete the full course of antibiotics unless otherwise notified by the clinic based on culture results. - Follow-up with your PCP in 3-5 days if symptoms have not improved or sooner if symptoms worsen - Discussed red flags and need for immediate medical evaluation if any occur. - Discussed supportive care treatment with fluids, rest and analgesia. - Discussed expected course of illness Leanna Huffman APRN.VEGETABLE WASHER and Recording using [employer]ot network software for draft documentation of the visit was discussed with the patient/authorized representative government relations; all questions welcomed and answered. Patient/authorized representative government relations agreed to proceed Differential Diagnoses - UTI is more likely for the following reason(s): consistent with laboratory studies and suggested by HANDP - pyelonephritis is less likely for the following reason(s): HANDP not suggestive and laboratory studies not suggestive - nephrolithisis is less likely for the following reason(s): HANDP not suggestive and laboratory studies not suggestive Disposition The patient was discharged. Procedures [1] [facility] 11-27-2023 Note Pt here for depo pro vera injection. She is due, she take 300 mg IM every 10 weeks for endometriosis Latosha Ledesma CNP AUTHENTICATED BY LATOSHA LEDESMA, ON 11/27/2023 09:42:48 [facility] 11-27-2023 History of Present illness Narrative Pt here for depo provera injection. She is due, she take 300 mg IM every 10 weeks for endometriosis Latosha Ledesma CNP documented in this encounter [facility] 09-26-2023 History of Present illness Narrative Pt currently on depo provera 150 mg IM every 10 weeks for endometriosis. Her symptoms are well controlled on this dose. She has tried and failed, OCP, POP, Orilissa, She did improve after a diagnostic laparoscopy with lysis of adhesions and fulguration of endometrial implants. PT fills Rx and [facility] and this provider gives IM injections at home. Last dose 09/24/2023. The pt's supply plunger dispelled and the medication was wasted. Office supply was used to replace pt's wasted medication [facility] [id number] Lot [id number] Exp 2025-02 300 mg Pt to repeat injection in 10 weeks Latosha Ledesma CNP documented in this encounter [facility] 07-10-2023 History of Present illness Narrative CHIEF COMPLAINT: Chief Complaint Patient presents with Pelvic Pain Here today to discuss endometriosis. Has been doing depo provera 300mg since end of august 2022. States is on a 10 week rotation of injection. C/o shot wearing off toward 8 week lori. History of Present Illness: Brittani Bundy is a 22 y.o. female Pt is a presenting with symptoms starting at about 8 weeks after her Depo Provera injection. Wondering could take it any sooner. Prescription reviewed and she is still on an every 3 month rotation of the Depo-Provera 300 mg. We will decrease the interval to every 10 weeks and I did give her samples of SLYND to use during the last 2 weeks prior to her next injection of Depo-Provera.She has tried orlissa with a lot of side effects and can not afford Depo Lupron at this point. OB History 0 Para 0 Term 0 0 AB 0 Living 0 SAB 0 IAB 0 Ectopic 0 Molar 0 Multiple 0 Live Births 0 Past Medical History: Diagnosis Date Endometriosis Patient Active Problem List Diagnosis Endometriosis determined by laparoscopy Dysmenorrhea Pelvic and perineal pain Past Surgical History: Procedure Laterality Date OTHER SURGICAL 12/2021 FULGURATION OF ENDOMETRIOSIS WISDOM TEETH EXTRACTION 01/2021 APPENDECTOMY Allergies Allergen Reactions Amoxicillin-Pot Clavulanate Rash and Swelling Current Outpatient Medications: medroxyPROGESTERone acetate 150 MG/ML Suspension Prefilled Syringe inj syringe, 2 ml every 10 week per intramuscular route, Disp: 2 mL, Rfl: 4 dicyclomine 10 MG capsule, Take 1 capsule by mouth 4 times daily as needed for Abdominal Spasms. (Patient not taking: Reported on 04/08/2022), Disp: 30 capsule, Rfl: 0 Elagolix Sodium (Orilissa) 150 MG tablet, Take 1 tablet by mouth daily. (Patient not taking: Reported on 07/10/2023), Disp: 30 tablet, Rfl: 11 Elagolix Sodium (Orilissa) 200 MG tablet, Take 1 tablet by mouth daily. Quant: 4, Lot:[id number], Exp: 12/12/2022 (Patient not taking: Reported on 04/08/2022), Disp: 1 tablet, Rfl: 0 EPINEPHrine 0.3 MG/0.3ML Solution Auto-injector injection, Inject contents of 1 autoinjector (0.3 mg) into thigh for allergic reactions (hives, lip/tongue/throat swelling, breathing trouble, lightheadedness, passing out or other symptoms of an allergic reaction) and seek medical attention immediately. If symptoms do not resolve after 5 min and still awaiting medical care, inject contents of a second autoinjector., Disp: 1 Each, Rfl: 0 famotidine 40 MG tablet, Take 1 tablet by mouth daily., Disp: 20 tablet, Rfl: 0 goserelin 10.8 MG Implant, Inject 10.8 mg under the skin once for 1 dose., Disp: 1 Each, Rfl: 3 hydroCODone-acetaminophen 5-325 MG tablet, Take 1-2 tablets by mouth every 6 hours as needed for up to 4 days., Disp: 20 tablet, Rfl: 0 hydrocortisone 2.5 % Cream, Apply BID to rash, Do not apply to genitals or face, Disp: 20 g, Rfl: 0 Social History Socioeconomic History Marital status: Single Spouse name: Not on file Number of children: Not on file Years of education: Not on file Highest education level: Not on file Occupational History Not on file Tobacco Use Smoking status: Never Smokeless tobacco: Never Vaping Use Vaping Use: Never used Substance and Sexual Activity Alcohol use: Not Currently Drug use: Never Sexual activity: Not Currently Partners: Male control/protection: Condom Other Topics Concern Service Not Asked Blood Transfusions Not Asked Caffeine Concern Not Asked Occupational Exposure Not Asked Hobby Hazards Not Asked Sleep Concern Not Asked Stress Concern Not Asked Weight Concern Not Asked Special Diet Not Asked Back Care Not Asked Exercise Not Asked Bike Helmet Not Asked Seat Belt Not Asked Domestic Violence Not Asked Social History Narrative Not on file Social Determinants of Health Financial Resource Strain: Not on file Food Insecurity: Not on file Transportation Needs: Not on file Physical Activity: Not on file Stress: Not on file Social Connections: Not on file Intimate Partner Violence: Not on file Housing Stability: Not on file Family History Problem Relation Age of Onset No known problems Mother No known problems Father Review of Systems - Pertinent items are noted in HPI. A comprehensive review of systems was otherwise negative. Physical Exam Vital Signs: Blood pressure 122/64, resp. rate 18, weight 62.8 kg (138 lb 6.4 oz). Admission Weight: Weight: 62.8 kg (138 lb 6.4 oz) Labs: Lab Results Component Value Date WBC 9.6 06/05/2023 HGB 14.8 06/05/2023 HCT 43.4 06/05/2023 MCV 89.5 06/05/2023 Lab Results Component Value Date CALCIUM 9.1 06/05/2023 CO2 23 06/05/2023 BUN 19 06/05/2023 No results found for: AMYLASE No results found for: LIPASE Lab Results Component Value Date ALT 15 06/05/2023 AST 25 06/05/2023 ALKPHOS 56 06/05/2023 No results found for: INR, PROTIME Imaging: normal Physical Exam BP 122/64 (BP Location: Left arm, BP Position: Sitting) Resp 18 Wt 62.8 kg (138 lb 6.4 oz) BMI 22.34 kg/m Smoking Status Never General: in no apparent distress HEENT: {Exam; Normal and PERRLA, EOMI, fundi benign Breast: Cardiac: regular rate and rhythm, S1, S2 normal, no murmur, click, rub or gallop Pulmonary: Heart exam - S1, S2 normal, no murmur, no gallop, rate regular Abdomen: soft, nontender, nondistended, no abnormal masses, no epigastric pain Pelvic:exam deferred Extremities: no redness or tenderness in the calves or thighs, no edema Assessment and Plan Endometriosis of the pelvic peritoneum which is confirmed by laparoscopy. She has had fulguration of endometriosis as well as excision and is on Depo-Provera for suppression of endometriosis growth. She is still experiencing some breakthrough bleeding and does have severe pain and cramping whenever she bleeds. We will try the Slynd the last 2 weeks of her cycle prior to her next injection. Hopefully this will help take care of some of her symptoms. Otherwise he may have to try Depo Lupron since orlissa is not an option for her documented in this encounter [facility] Phone: 06-05-2023 Hospital Discharge instructions Trevon Ordaz, - 06/05/2023 1:00 AM EST Today you were evaluated in the Emergency Department. Although your workup did not necessitate admission or immediate further workup, it is important you follow up for continued care per the recommendations below. If you were prescribed medications they are included on this discharge sheet, please take them as directed. You are always welcome back at this or any Emergency Department for any concerns, complaints, changes, or worsening symptoms. Follow-up Care Options: Follow-up care from your Emergency Department visit is recommended. Follow-up care options include scheduling an appointment with your primary care provider, specialist, or physician of your choice; return to the Emergency Department; go to the urgent care; or receive follow-up care from [facility]. [facility] offers virtual care visits. To start your virtual visit, use your smartphone, computer, or tablet and to [email or web address]. Have questions on [employer] care? Call [phone]. The following attachments cannot be sent through Care Everywhere.Allergic Reaction (Kittitian)documented in this encounter [employer] Work Phone: 06-05-2023 Physician Emergency department Note Images from the original note were not included. [facility] EMERGENCY DEPARTMENT ENCOUNTER PATIENT NAME: Brittani Bundy : 2000 [place]UL: 06/05/2023 PROVIDER: Trevon Ordaz DO Chief Complaint Patient presents with Allergic Reaction Pt to the ED via lobby with complaint of an allergic reaction. Pt stated she had a sore throat and they gave her an antibiotic for it. Pt state this morning she woke up and and her eyes were swollen so she took benadryl all day. Pt stated now her lips feel a little puffy. Pt denies difficulty breathing . HPI Brittani Bundy is a 22 y.o. female Past medical history endometriosis presenting with allergic reaction. Patient was prescribed Augmentin which she finished 3 days ago. This morning patient noticed an itchy rash on her stomach which spread diffusely and swelling around her eyes. She also states that her lips are now feel puffy and she complains of residual sore throat denies trouble breathing, wheezing, new detergents, new soaps, new medications, recent travel, recent sick contacts with similar symptoms, history of anaphylaxis requiring EpiPen or intubation. Review of Systems: Review of Systems Constitutional: Negative for fever. HENT: Positive for facial swelling. Negative for congestion and drooling. Eyes: Negative for pain. Respiratory: Negative for cough and shortness of breath. Cardiovascular: Negative for chest pain. Gastrointestinal: Negative for nausea and vomiting. Genitourinary: Negative for dysuria. Skin: Positive for rash. Negative for wound. Neurological: Negative for dizziness. Past History: Past Medical History: Diagnosis Date Endometriosis Past Surgical History: Procedure Laterality Date OTHER SURGICAL 12/2021 FULGURATION OF ENDOMETRIOSIS WISDOM TEETH EXTRACTION 01/2021 APPENDECTOMY Allergies Allergen Reactions Amoxicillin-Pot Clavulanate Rash and Swelling Family History Problem Relation Age of Onset No known problems Mother No known problems Father Social History Socioeconomic History Marital status: Single Spouse name: Not on file Number of children: Not on file Years of education: Not on file Highest education level: Not on file Occupational History Not on file Tobacco Use Smoking status: Never Smokeless tobacco: Never Vaping Use Vaping Use: Never used Substance and Sexual Activity Alcohol use: Not Currently Drug use: Never Sexual activity: Not Currently Partners: Male control/protection: Condom Other Topics Concern Service Not Asked Blood Transfusions Not Asked Caffeine Concern Not Asked Occupational Exposure Not Asked Hobby Hazards Not Asked Sleep Concern Not Asked Stress Concern Not Asked Weight Concern Not Asked Special Diet Not Asked Back Care Not Asked Exercise Not Asked Bike Helmet Not Asked Seat Belt Not Asked Domestic Violence Not Asked Social History Narrative Not on file Social Determinants of Health Financial Resource Strain: Not on file Food Insecurity: Not on file Transportation Needs: Not on file Physical Activity: Not on file Stress: Not on file Social Connections: Not on file Intimate Partner Violence: Not on file Housing Stability: Not on file Physical Exam: Physical Exam Constitutional: General: She is not in acute distress. Appearance: Normal appearance. She is not ill-appearing. HENT: Head: Normocephalic and atraumatic. Comments: Nonpitting periorbital edema without evidence of cellulitis Right Ear: External ear normal. Left Ear: External ear normal. Nose: Nose normal. Mouth/Throat: Pharynx: No oropharyngeal exudate. Eyes: Pupils: Pupils are equal, round, and reactive to light. Cardiovascular: Rate and Rhythm: Normal rate. Pulses: Normal pulses. Pulmonary: Effort: Pulmonary effort is normal. Breath sounds: No stridor or decreased air movement. No wheezing, rhonchi or rales. Abdominal: General: Abdomen is flat. Tenderness: There is no abdominal tenderness. Musculoskeletal: General: No swelling. Normal range of motion. Cervical back: Normal range of motion. No rigidity. Skin: General: Skin is warm. Findings: No rash. Neurological: General: No focal deficit present. Mental Status: She is alert. Cranial Nerves: No cranial nerve deficit. Psychiatric: Mood and Affect: Mood normal. Vital Signs During ED Visit Patient Vitals for the past 24 hrs: BP Temp Temp src Pulse Resp SpO2 Height Weight 06/05/23 0100 115/64 -- -- 108 15 99 % -- -- 06/05/23 0037 130/84 100 F (37.8 C) Temporal 131 14 99 % 1.676 m (5' 6) 60.7 kg (133 lb 13.1 oz) Orders/Results: Orders Placed This Encounter CBC, EDIF, PLATELET COMPREHENSIVE METABOLIC PROFILE ER methylPREDNISolone Sodium Succ (SOLU-MEDROL) injection 125 mg diphenhydrAMINE (BENADRYL) injection 50 mg famotidine (PF) (PEPCID) injection 20 mg Ketorolac (TORADOL) injection 15 mg Sodium chloride 0.9% IV solution 1,000 mL predniSONE 20 MG tablet famotidine 40 MG tablet EPINEPHrine 0.3 MG/0.3ML Solution Auto-injector injection hydrocortisone 2.5 % Cream Results for orders placed or performed during the hospital encounter of 06/05/23 CBC, EDIF, PLATELET Result Value Ref Range WBC (WHITE BLOOD COUNT) 9.6 4.8 - 10.8 thou/cumm RBC 4.85 4.20 - 5.40 mil/cumm HEMOGLOBIN (HGB) 14.8 12.0 - 16.0 g/dL HEMATOCRIT (HCT) 43.4 37.0 - 47.0 % MEAN CELL VOLUME 89.5 81.0 - 99.0 fL Mean Cell HGB 30.5 28.0 - 32.0 pg MEAN CELL HGB CONCENTRATION 34.1 33.0 - 37.0 g/dL RBC DISTRIBUTION 12.4 11.5 - 14.5 % PLATELET COUNT 233 130 - 400 thou/cumm NEUTROPHILS 78.1 (H) 39.4 - 72.5 % LYMPHOCYTE 12.2 (L) 17.6 - 49.6 % MONOCYTES: 7.9 4.1 - 12.4 % EOSINOPHIL % 1.4 0.0 - 4.0 % BASOPHIL % 0.4 0.0 - 3.0 % SCAN SLIDE NO NO COMPREHENSIVE METABOLIC PROFILE ER Result Value Ref Range SODIUM 139 136 - 145 mEq/L POTASSIUM 3.8 3.5 - 5.1 mEq/L CHLORIDE 107 98 - 107 mEq/L CARBON DIOXIDE (CO2) 23 22 - 31 mEq/L ANION GAP 12.8 10.0 - 20.0 mEq/L Glucose 146 (H) 70 - 126 mg/dL BUN 19 7 - 22 mg/dL CREATININE SERUM 0.9 0.4 - 1.1 mg/dL ESTIMATED GFR >=60 CALCIUM 9.1 8.4 - 10.2 mg/dL AST 25 10 - 42 U/L ALT 15 7 - 35 U/L ALKALINE PHOSPHATASE 56 38 - 126 U/L BILIRUBIN, TOTAL 1.7 (H) 0.3 - 1.2 mg/dL PROTEIN, TOTAL 7.3 6.4 - 8.3 g/dL Albumin 3.9 3.5 - 5.0 g/dL Globulin 3.4 (H) 2.9 - 3.3 g/dL A/G Ratio 1.1 (L) 1.2 - 1.5 Diagnostics: No orders to display Results for orders placed or performed during the hospital encounter of 06/05/23 CBC, EDIF, PLATELET Result Value Ref Range WBC (WHITE BLOOD COUNT) 9.6 4.8 - 10.8 thou/cumm RBC 4.85 4.20 - 5.40 mil/cumm HEMOGLOBIN (HGB) 14.8 12.0 - 16.0 g/dL HEMATOCRIT (HCT) 43.4 37.0 - 47.0 % MEAN CELL VOLUME 89.5 81.0 - 99.0 fL Mean Cell HGB 30.5 28.0 - 32.0 pg MEAN CELL HGB CONCENTRATION 34.1 33.0 - 37.0 g/dL RBC DISTRIBUTION 12.4 11.5 - 14.5 % PLATELET COUNT 233 130 - 400 thou/cumm NEUTROPHILS 78.1 (H) 39.4 - 72.5 % LYMPHOCYTE 12.2 (L) 17.6 - 49.6 % MONOCYTES: 7.9 4.1 - 12.4 % EOSINOPHIL % 1.4 0.0 - 4.0 % BASOPHIL % 0.4 0.0 - 3.0 % SCAN SLIDE NO NO COMPREHENSIVE METABOLIC PROFILE ER Result Value Ref Range SODIUM 139 136 - 145 mEq/L POTASSIUM 3.8 3.5 - 5.1 mEq/L CHLORIDE 107 98 - 107 mEq/L CARBON DIOXIDE (CO2) 23 22 - 31 mEq/L ANION GAP 12.8 10.0 - 20.0 mEq/L Glucose 146 (H) 70 - 126 mg/dL BUN 19 7 - 22 mg/dL CREATININE SERUM 0.9 0.4 - 1.1 mg/dL ESTIMATED GFR >=60 CALCIUM 9.1 8.4 - 10.2 mg/dL AST 25 10 - 42 U/L ALT 15 7 - 35 U/L ALKALINE PHOSPHATASE 56 38 - 126 U/L BILIRUBIN, TOTAL 1.7 (H) 0.3 - 1.2 mg/dL PROTEIN, TOTAL 7.3 6.4 - 8.3 g/dL Albumin 3.9 3.5 - 5.0 g/dL Globulin 3.4 (H) 2.9 - 3.3 g/dL A/G Ratio 1.1 (L) 1.2 - 1.5 EKG: Not obtained Procedures: Procedures Clinical Impression: 1. Drug eruption 2. Allergic reaction, initial encounter 3. Facial swelling ED Summary/MDM Medical Decision Making 22-year-old female presenting with swelling around her eyes and rash after finishing course of Augmentin. On arrival patient is tachycardic with a low-grade temperature at 100 F otherwise hemodynamically stable, afebrile, with physical exam revealing nonpitting periorbital edema without evidence of periorbital cellulitis, peripheral rashes pictured above not suspicious for SJS, TEN, staphylococcal scalded skin, among others. Patient was notified of plan to obtain prove that she is not as the medications I plan to administer could harm potential unexpected fetus, but she assures me she is not and agreed to undergo these risks. She was administered Benadryl, Solu-Medrol, Pepcid, Toradol, IV fluids with repeat physical exam reassuring and noted fading rash. She experienced no respiratory symptoms during her stay. Doubt anaphylaxis. Basic labs unrevealing. She was notified of my suspicion for allergic reaction to Augmentin and plan to discharge with the medications below after discussing strict return precautions patient verbalized understanding of all concepts discussed and had no further questions. Risk Prescription drug management. No follow-ups on file. New Prescriptions EPINEPHRINE 0.3 MG/0.3ML SOLUTION AUTO-INJECTOR INJECTION Inject contents of 1 autoinjector (0.3 mg) into thigh for allergic reactions (hives, lip/tongue/throat swelling, breathing trouble, lightheadedness, passing out or other symptoms of an allergic reaction) and seek medical attention immediately. If symptoms do not resolve after 5 min and still awaiting medical care, inject contents of a second autoinjector. FAMOTIDINE 40 MG TABLET Take 1 tablet by mouth daily. HYDROCORTISONE 2.5 % CREAM Apply BID to rash, Do not apply to genitals or face PREDNISONE 20 MG TABLET Take 2 tablets by mouth daily for 5 days. Discontinued Medications No medications on file Portions of this note were dictated using Accelera software. It has been reviewed for accuracy, but may contain grammatical and clerical errors. Trevon Ordaz DO 06/05/[address] [facility] Work Phone: 06-05-2023 Emergency department Note Images from the original note were not included. [facility] EMERGENCY DEPARTMENT ENCOUNTER PATIENT NAME: Brittani Bundy : 2000 AZUL: 06/05/2023 PROVIDER: Trevon Ordaz DO Chief Complaint Patient presents with Allergic Reaction Pt to the ED via lobby with complaint of an allergic reaction. Pt stated she had a sore throat and they gave her an antibiotic for it. Pt state this morning she woke up and and her eyes were swollen so she took benadryl all day. Pt stated now her lips feel a little puffy. Pt denies difficulty breathing . HPI Brittani Bundy is a 22 y.o. female Past medical history endometriosis presenting with allergic reaction. Patient was prescribed Augmentin which she finished 3 days ago. This morning patient noticed an itchy rash on her stomach which spread diffusely and swelling around her eyes. She also states that her lips are now feel puffy and she complains of residual sore throat denies trouble breathing, wheezing, new detergents, new soaps, new medications, recent travel, recent sick contacts with similar symptoms, history of anaphylaxis requiring EpiPen or intubation. Review of Systems: Review of Systems Constitutional: Negative for fever. HENT: Positive for facial swelling. Negative for congestion and drooling. Eyes: Negative for pain. Respiratory: Negative for cough and shortness of breath. Cardiovascular: Negative for chest pain. Gastrointestinal: Negative for nausea and vomiting. Genitourinary: Negative for dysuria. Skin: Positive for rash. Negative for wound. Neurological: Negative for dizziness. Past History: Past Medical History: Diagnosis Date Endometriosis Past Surgical History: Procedure Laterality Date OTHER SURGICAL 12/2021 FULGURATION OF ENDOMETRIOSIS WISDOM TEETH EXTRACTION 01/2021 APPENDECTOMY Allergies Allergen Reactions Amoxicillin-Pot Clavulanate Rash and Swelling Family History Problem Relation Age of Onset No known problems Mother No known problems Father Social History Socioeconomic History Marital status: Single Spouse name: Not on file Number of children: Not on file Years of education: Not on file Highest education level: Not on file Occupational History Not on file Tobacco Use Smoking status: Never Smokeless tobacco: Never Vaping Use Vaping Use: Never used Substance and Sexual Activity Alcohol use: Not Currently Drug use: Never Sexual activity: Not Currently Partners: Male control/protection: Condom Other Topics Concern Service Not Asked Blood Transfusions Not Asked Caffeine Concern Not Asked Occupational Exposure Not Asked Hobby Hazards Not Asked Sleep Concern Not Asked Stress Concern Not Asked Weight Concern Not Asked Special Diet Not Asked Back Care Not Asked Exercise Not Asked Bike Helmet Not Asked Seat Belt Not Asked Domestic Violence Not Asked Social History Narrative Not on file Social Determinants of Health Financial Resource Strain: Not on file Food Insecurity: Not on file Transportation Needs: Not on file Physical Activity: Not on file Stress: Not on file Social Connections: Not on file Intimate Partner Violence: Not on file Housing Stability: Not on file Physical Exam: Physical Exam Constitutional: General: She is not in acute distress. Appearance: Normal appearance. She is not ill-appearing. HENT: Head: Normocephalic and atraumatic. Comments: Nonpitting periorbital edema without evidence of cellulitis Right Ear: External ear normal. Left Ear: External ear normal. Nose: Nose normal. Mouth/Throat: Pharynx: No oropharyngeal exudate. Eyes: Pupils: Pupils are equal, round, and reactive to light. Cardiovascular: Rate and Rhythm: Normal rate. Pulses: Normal pulses. Pulmonary: Effort: Pulmonary effort is normal. Breath sounds: No stridor or decreased air movement. No wheezing, rhonchi or rales. Abdominal: General: Abdomen is flat. Tenderness: There is no abdominal tenderness. Musculoskeletal: General: No swelling. Normal range of motion. Cervical back: Normal range of motion. No rigidity. Skin: General: Skin is warm. Findings: No rash. Neurological: General: No focal deficit present. Mental Status: She is alert. Cranial Nerves: No cranial nerve deficit. Psychiatric: Mood and Affect: Mood normal. Vital Signs During ED Visit Patient Vitals for the past 24 hrs: BP Temp Temp src Pulse Resp SpO2 Height Weight 06/05/23 0100 115/64 -- -- 108 15 99 % -- -- 06/05/23 0037 130/84 100 F (37.8 C) Temporal 131 14 99 % 1.676 m (5' 6) 60.7 kg (133 lb 13.1 oz) Orders/Results: Orders Placed This Encounter CBC, EDIF, PLATELET COMPREHENSIVE METABOLIC PROFILE ER methylPREDNISolone Sodium Succ (SOLU-MEDROL) injection 125 mg diphenhydrAMINE (BENADRYL) injection 50 mg famotidine (PF) (PEPCID) injection 20 mg Ketorolac (TORADOL) injection 15 mg Sodium chloride 0.9% IV solution 1,000 mL predniSONE 20 MG tablet famotidine 40 MG tablet EPINEPHrine 0.3 MG/0.3ML Solution Auto-injector injection hydrocortisone 2.5 % Cream Results for orders placed or performed during the hospital encounter of 06/05/23 CBC, EDIF, PLATELET Result Value Ref Range WBC (WHITE BLOOD COUNT) 9.6 4.8 - 10.8 thou/cumm RBC 4.85 4.20 - 5.40 mil/cumm HEMOGLOBIN (HGB) 14.8 12.0 - 16.0 g/dL HEMATOCRIT (HCT) 43.4 37.0 - 47.0 % MEAN CELL VOLUME 89.5 81.0 - 99.0 fL Mean Cell HGB 30.5 28.0 - 32.0 pg MEAN CELL HGB CONCENTRATION 34.1 33.0 - 37.0 g/dL RBC DISTRIBUTION 12.4 11.5 - 14.5 % PLATELET COUNT 233 130 - 400 thou/cumm NEUTROPHILS 78.1 (H) 39.4 - 72.5 % LYMPHOCYTE 12.2 (L) 17.6 - 49.6 % MONOCYTES: 7.9 4.1 - 12.4 % EOSINOPHIL % 1.4 0.0 - 4.0 % BASOPHIL % 0.4 0.0 - 3.0 % SCAN SLIDE NO NO COMPREHENSIVE METABOLIC PROFILE ER Result Value Ref Range SODIUM 139 136 - 145 mEq/L POTASSIUM 3.8 3.5 - 5.1 mEq/L CHLORIDE 107 98 - 107 mEq/L CARBON DIOXIDE (CO2) 23 22 - 31 mEq/L ANION GAP 12.8 10.0 - 20.0 mEq/L Glucose 146 (H) 70 - 126 mg/dL BUN 19 7 - 22 mg/dL CREATININE SERUM 0.9 0.4 - 1.1 mg/dL ESTIMATED GFR >=60 CALCIUM 9.1 8.4 - 10.2 mg/dL AST 25 10 - 42 U/L ALT 15 7 - 35 U/L ALKALINE PHOSPHATASE 56 38 - 126 U/L BILIRUBIN, TOTAL 1.7 (H) 0.3 - 1.2 mg/dL PROTEIN, TOTAL 7.3 6.4 - 8.3 g/dL Albumin 3.9 3.5 - 5.0 g/dL Globulin 3.4 (H) 2.9 - 3.3 g/dL A/G Ratio 1.1 (L) 1.2 - 1.5 Diagnostics: No orders to display Results for orders placed or performed during the hospital encounter of 06/05/23 CBC, EDIF, PLATELET Result Value Ref Range WBC (WHITE BLOOD COUNT) 9.6 4.8 - 10.8 thou/cumm RBC 4.85 4.20 - 5.40 mil/cumm HEMOGLOBIN (HGB) 14.8 12.0 - 16.0 g/dL HEMATOCRIT (HCT) 43.4 37.0 - 47.0 % MEAN CELL VOLUME 89.5 81.0 - 99.0 fL Mean Cell HGB 30.5 28.0 - 32.0 pg MEAN CELL HGB CONCENTRATION 34.1 33.0 - 37.0 g/dL RBC DISTRIBUTION 12.4 11.5 - 14.5 % PLATELET COUNT 233 130 - 400 thou/cumm NEUTROPHILS 78.1 (H) 39.4 - 72.5 % LYMPHOCYTE 12.2 (L) 17.6 - 49.6 % MONOCYTES: 7.9 4.1 - 12.4 % EOSINOPHIL % 1.4 0.0 - 4.0 % BASOPHIL % 0.4 0.0 - 3.0 % SCAN SLIDE NO NO COMPREHENSIVE METABOLIC PROFILE ER Result Value Ref Range SODIUM 139 136 - 145 mEq/L POTASSIUM 3.8 3.5 - 5.1 mEq/L CHLORIDE 107 98 - 107 mEq/L CARBON DIOXIDE (CO2) 23 22 - 31 mEq/L ANION GAP 12.8 10.0 - 20.0 mEq/L Glucose 146 (H) 70 - 126 mg/dL BUN 19 7 - 22 mg/dL CREATININE SERUM 0.9 0.4 - 1.1 mg/dL ESTIMATED GFR >=60 CALCIUM 9.1 8.4 - 10.2 mg/dL AST 25 10 - 42 U/L ALT 15 7 - 35 U/L ALKALINE PHOSPHATASE 56 38 - 126 U/L BILIRUBIN, TOTAL 1.7 (H) 0.3 - 1.2 mg/dL PROTEIN, TOTAL 7.3 6.4 - 8.3 g/dL Albumin 3.9 3.5 - 5.0 g/dL Globulin 3.4 (H) 2.9 - 3.3 g/dL A/G Ratio 1.1 (L) 1.2 - 1.5 EKG: Not obtained Procedures: Procedures Clinical Impression: 1. Drug eruption 2. Allergic reaction, initial encounter 3. Facial swelling ED Summary/MDM Medical Decision Making 22-year-old female presenting with swelling around her eyes and rash after finishing course of Augmentin. On arrival patient is tachycardic with a low-grade temperature at 100 F otherwise hemodynamically stable, afebrile, with physical exam revealing nonpitting periorbital edema without evidence of periorbital cellulitis, peripheral rashes pictured above not suspicious for SJS, TEN, staphylococcal scalded skin, among others. Patient was notified of plan to obtain prove that she is not as the medications I plan to administer could harm potential unexpected fetus, but she assures me she is not and agreed to undergo these risks. She was administered Benadryl, Solu-Medrol, Pepcid, Toradol, IV fluids with repeat physical exam reassuring and noted fading rash. She experienced no respiratory symptoms during her stay. Doubt anaphylaxis. Basic labs unrevealing. She was notified of my suspicion for allergic reaction to Augmentin and plan to discharge with the medications below after discussing strict return precautions patient verbalized understanding of all concepts discussed and had no further questions. Risk Prescription drug management. No follow-ups on file. New Prescriptions EPINEPHRINE 0.3 MG/0.3ML SOLUTION AUTO-INJECTOR INJECTION Inject contents of 1 autoinjector (0.3 mg) into thigh for allergic reactions (hives, lip/tongue/throat swelling, breathing trouble, lightheadedness, passing out or other symptoms of an allergic reaction) and seek medical attention immediately. If symptoms do not resolve after 5 min and still awaiting medical care, inject contents of a second autoinjector. FAMOTIDINE 40 MG TABLET Take 1 tablet by mouth daily. HYDROCORTISONE 2.5 % CREAM Apply BID to rash, Do not apply to genitals or face PREDNISONE 20 MG TABLET Take 2 tablets by mouth daily for 5 days. Discontinued Medications No medications on file Portions of this note were dictated using Accelera software. It has been reviewed for accuracy, but may contain grammatical and clerical errors. Trevon Ordaz DO 06/05/23 0156 documented in this encounter [employer] Phone: 08-31-2022 History of Present illness Narrative HPI: Pt is a 21 y.o. presenting with increasingly painful periods. She has been on or less and could not tolerate it due to side effects. She has been changed over to control pills in her periods are getting more and more painful on the control pills. She has a history of endometriosis it was determined by laparoscopy and she feels that her endometriosis symptoms are coming back on the control pill she would like to explore nonsurgical options prior to having another laparoscopy. Patient Active Problem List Diagnosis Endometriosis determined by laparoscopy Dysmenorrhea Pelvic and perineal pain Past Medical History: Diagnosis Date Endometriosis No Known Allergies Outpatient Medications Prior to Visit Medication Sig Dispense Refill Norethindrone 0.35 MG tablet Take 1 tablet by mouth daily. 84 tablet 3 dicyclomine 10 MG capsule Take 1 capsule by mouth 4 times daily as needed for Abdominal Spasms. (Patient not taking: Reported on 04/08/2022) 30 capsule 0 Elagolix Sodium (Orilissa) 200 MG tablet Take 1 tablet by mouth daily. Quant: 4, [id number], Exp: 12/12/2022 (Patient not taking: Reported on 04/08/2022) 1 tablet 0 hydroCODone-acetaminophen 5-325 MG tablet Take 1-2 tablets by mouth every 6 hours as needed for up to 4 days. 20 tablet 0 levonorgestrel-ethinyl estradiol 0.1-20 MG-MCG tablet Take 1 tablet by mouth daily. (Patient not taking: Reported on 04/08/2022) 84 tablet 3 No facility-administered medications prior to visit. Past Surgical History: Procedure Laterality Date OTHER SURGICAL 12/2021 FULGURATION OF ENDOMETRIOSIS WISDOM TEETH EXTRACTION 01/2021 APPENDECTOMY Family History Problem Relation Age of Onset No known problems Mother No known problems Father Social History Socioeconomic History Marital status: Single Spouse name: Not on file Number of children: Not on file Years of education: Not on file Highest education level: Not on file Occupational History Not on file Tobacco Use Smoking status: Never Smokeless tobacco: Never Vaping Use Vaping Use: Never used Substance and Sexual Activity Alcohol use: Not Currently Drug use: Never Sexual activity: Not Currently Partners: Male control/protection: Condom Other Topics Concern Service Not Asked Blood Transfusions Not Asked Caffeine Concern Not Asked Occupational Exposure Not Asked Hobby Hazards Not Asked Sleep Concern Not Asked Stress Concern Not Asked Weight Concern Not Asked Special Diet Not Asked Back Care Not Asked Exercise Not Asked Bike Helmet Not Asked Seat Belt Not Asked Domestic Violence Not Asked Social History Narrative Not on file Social Determinants of Health Financial Resource Strain: Not on file Food Insecurity: Not on file Transportation Needs: Not on file Physical Activity: Not on file Stress: Not on file Social Connections: Not on file Intimate Partner Violence: Not on file Housing Stability: Not on file Physical Exam BP 100/60 (BP Location: Left arm, BP Position: Sitting) Resp 20 Ht 1.676 m (5' 6) Wt 58.9 kg (129 lb 12.8 oz) BMI 20.95 kg/m Smoking Status Never General: in no apparent distress, alert, oriented times 3 and cooperative Cardiac: regular rate and rhythm, S1, S2 normal, no murmur, click, rub or gallop Pulmonary: Heart exam - S1, S2 normal, no murmur, no gallop, rate regular Abdomen: soft, nontender, nondistended, no abnormal masses, no epigastric pain and mild pelvic pain in the suprapubic and left lower quadrant region. No rebound minimal guarding Pelvic:abnormal: Uterine tenderness, bilateral adnexal tenderness and tenderness along the uterosacral ligaments consistent with previous history of endometriosis. Extremities: no redness or tenderness in the calves or thighs, no edema Assessment and Plan Endometriosis determine by laparoscopy. Failed control pills, failed orlissa. We will schedule her for Depo Lupron 11.25 mg every 3 months and see how she does. She may need to have another laparoscopy in the future to destroy endometriosis. documented in this encounter [employer] Work Phone: 04-08-2022 History of Present illness Narrative Subjective: Patient ID: Brittani Bundy is a 21 y.o. female. Chief Complaint: Chief Complaint Patient presents with Muscle Weakness States has been having arm and leg muscle weakness along with headaches x 2 weeks. States is having some difficulty walking along with lower back pain. DOES NOT have any bladder or bowel incontinence. Denies chest pain, shortness of breath, or pain radiating down legs. HPI: Pt here for follow up, symptoms are the same, severe muscle fatigue and weakness by the end of the day. She had another vitamin infusion today in , she is seeing an naturopathic Dr. For worsening symptoms. This is her second day off of orilissa, she is planning to stay off of all medicaitons at least 30 days, she may opt to contine control after that. HPI Review of Systems: Review of Systems Constitutional: Positive for fatigue. Negative for fever. Gastrointestinal: Positive for nausea. Negative for constipation, diarrhea, rectal pain and vomiting. Genitourinary: Positive for pelvic pain. Musculoskeletal: Positive for arthralgias and myalgias. Neurological: Positive for weakness and headaches. Negative for dizziness, tremors, seizures, syncope, facial asymmetry, speech difficulty, light-headedness and numbness. Social History Social History Socioeconomic History Marital status: Single Spouse name: Not on file Number of children: Not on file Years of education: Not on file Highest education level: Not on file Occupational History Not on file Tobacco Use Smoking status: Never Smokeless tobacco: Never Vaping Use Vaping Use: Never used Substance and Sexual Activity Alcohol use: Not Currently Drug use: Never Sexual activity: Not Currently Partners: Male control/protection: Condom Other Topics Concern Service Not Asked Blood Transfusions Not Asked Caffeine Concern Not Asked Occupational Exposure Not Asked Hobby Hazards Not Asked Sleep Concern Not Asked Stress Concern Not Asked Weight Concern Not Asked Special Diet Not Asked Back Care Not Asked Exercise Not Asked Bike Helmet Not Asked Seat Belt Not Asked Domestic Violence Not Asked Social History Narrative Not on file Social Determinants of Health Financial Resource Strain: Not on file Food Insecurity: Not on file Transportation Needs: Not on file Physical Activity: Not on file Stress: Not on file Social Connections: Not on file Intimate Partner Violence: Not on file Housing Stability: Not on file Past Medical History She has no past medical history on file. Past Surgical History She has no past surgical history on file. Past [employer] History OB History Para Term AB Living 0 0 0 0 0 0 SAB IAB Ectopic Molar Multiple Live Births 0 0 0 0 0 0 Patient's last menstrual period was 01/11/2022. Allergies She has No Known Allergies. Current Outpatient Medications Medication Sig Dispense Refill dicyclomine 10 MG capsule Take 1 capsule by mouth 4 times daily as needed for Abdominal Spasms. (Patient not taking: Reported on 04/08/2022) 30 capsule 0 Elagolix Sodium (Orilissa) 200 MG tablet Take 1 tablet by mouth daily. Quant: 4, [id number], Exp: 12/12/2022 (Patient not taking: Reported on 04/08/2022) 1 tablet 0 hydroCODone-acetaminophen 5-325 MG tablet Take 1-2 tablets by mouth every 6 hours as needed for up to 4 days. 20 tablet 0 levonorgestrel-ethinyl estradiol 0.1-20 MG-MCG tablet Take 1 tablet by mouth daily. (Patient not taking: Reported on 04/08/2022) 84 tablet 3 No current facility-administered medications for this visit. Objective: Physical Exam BP 104/68 (BP Location: Left arm, BP Position: Sitting) Temp 98.9 F (37.2 C) (Temporal) Wt 55.8 kg (123 lb) BMI 19.85 kg/m Smoking Status Never Physical Exam Constitutional: General: She is not in acute distress. Appearance: Normal appearance. She is ill-appearing. Cardiovascular: Rate and Rhythm: Normal rate and regular rhythm. Pulses: Normal pulses. Heart sounds: Normal heart sounds. Pulmonary: Effort: Pulmonary effort is normal. Breath sounds: Normal breath sounds. Abdominal: General: Bowel sounds are normal. There is no distension. Tenderness: There is no abdominal tenderness. There is no guarding. Musculoskeletal: General: No swelling or deformity. Normal range of motion. Right lower leg: No edema. Neurological: Mental Status: She is alert. Skin: General: Skin is warm and dry. Psychiatric: Mood and Affect: Mood normal. Behavior: Behavior normal. Diagnostic Tests Results for orders placed or performed in visit on 12/30/21 URINE CULTURE Specimen: URINE - CLEAN CATCH Result Value Ref Range CULTURE, URINE, ROUTINE SEE BELOW POCT URINE DIPSTICK AUTOMATED Result Value Ref Range POCT APPEARANCE, URINE clear POCT COLOR, URINE yellow POCT GLUCOSE, URINE neg mg/dL POCT BILIRUBIN, URINE neg POCT KETONES, URINE neg mg/dL POCT SPECIFIC GRAVITY, URINE 1.010 1.001 - 1.035 POCT BLOOD, URINE trace POCT PH, URINE 6.0 5 - 7 POCT PROTEIN, URINE neg mg/dL POCT UROBILINOGEN, URINE neg 0 - 2 E.U./dL POCT NITRITE, URINE neg POCT LEUKOCYTE, URINE neg POCT ESTERASE, URINE POCT BACTERIA, URINE POCT WBC, URINE POCT RBC, URINE POCT AMORPHOUS, URINE POCT CASTS, QUANTITATIVE, URINE POCT SQUAMOUS EPIS, URINE POCT RENAL EPIS, URINE POCT CRYSTALS, URINE POCT URINE COMMENTS, URINE POCT MICROSCOPIC CERVICAL OR VAGINAL CYTOPATH PAP SMEAR Result Value Ref Range CERVICAL OR VAGINAL CYTOPATH PAP SMEAR SEE BELOW CT NG PROBE THIN PREP Result Value Ref Range CHLAMYDIA PROBE THIN PREP NEGATIVE NEG GONORRHEA PROBE THIN PREP NEGATIVE NEG Source Thin Prep Cervical Assessment/Plan: ICD-10-CM 1. Muscle weakness M62.81 POCT URINE DIPSTICK AUTOMATED UA neg BS 106 hgb 13.3 Follow up as planned. BEVERLY Cool documented in this encounter [employer] Work Phone: 01-07-2022 Hospital Discharge instructions Darrin Craig MD - 01/07/2022 6:51 PM EDT Stop taking hydrocodone and Toradol. Ibuprofen 400 mg up to 3 times a day for pain as needed. Take MiraLax daily. 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 Return for worsening symptoms. documented in this encounter [employer] 01-07-2022 Emergency department Note Called [facility], spoke to Rudy, requested CT abd/pelvis, pelvic ultrasound from 1 week ago. He will fax over. He obtained ED direct line in case of problems. [facility] 01-07-2022 Emergency department Note Called [facility], spoke to Rudy, requested CT abd/pelvis, pelvic ultrasound from 1 week ago. He will fax over. He obtained ED direct line in case of problems. Arrives ambulatory to ER c/o lower abdominal pain that started 1 week ago. Has had 2 previous ER visits without improvement. Denies vaginal discharge, fevers. Resp easy and unlabored. States eating and drinking okay. Skin p/w/d. documented in this encounter [facility] 01-07-2022 Emergency department Note Arrives ambulatory to ER c/o lower abdominal pain that started 1 week ago. Has had 2 previous ER visits without improvement. Denies vaginal discharge, fevers. Resp easy and unlabored. States eating and drinking okay. Skin p/w/d. [facility] 12-30-2021 History of Present illness Narrative Subjective: Brittani Bundy is a 21 y.o. female here for routine exam. Current Complaints: Chief Complaint Patient presents with Pelvic Pain Going on for past month. Feels like getting worse. States cramping/back pain is constant. 5-6/10 on pain scale. Uses heating pad/hot shower with some relief. States having some issues with constipation. . She is having BM daily, but harder than normal. Pain has been present about a month and constant and progressive. She has a lot of pressure throughout her pelvis and into her back. She states she Had a lot of cyclical pain that was resolved with Balcoltra OCP, but that is starting to increase as well over the past 6 months. She is no longer sexually active. She has not had a pap or pelvic exam prior. Gynecologic History Patient's last menstrual period was 12/13/2021 (exact date). regular q month without intermenstrual spotting. Vaginal Discharge: Denies vaginal discharge Social History Substance and Sexual Activity Sexual Activity Not Currently Partners: Male control/protection: Condom Last Pap: Reports last done never Results: Last Mammogram: patient has never had a mammogram Obstetrical History OB History Para Term AB Living 0 0 0 0 0 0 SAB IAB Ectopic Molar Multiple Live Births 0 0 0 0 0 0 Patient's medications, allergies, past medical, surgical, social and family histories were reviewed and updated as appropriate. Review of Systems Review of Systems Constitutional: Negative. HENT: Negative. Respiratory: Negative for chest tightness and shortness of breath. Cardiovascular: Negative for chest pain and palpitations. Gastrointestinal: Positive for abdominal pain and constipation. Negative for abdominal distention, blood in stool, diarrhea, nausea, rectal pain and vomiting. Endocrine: Negative for cold intolerance. Genitourinary: Positive for pelvic pain. Negative for difficulty urinating, dyspareunia, dysuria, flank pain, frequency, menstrual problem, vaginal bleeding, vaginal discharge and vaginal pain. Musculoskeletal: Negative for arthralgias, back pain and joint swelling. Neurological: Negative for dizziness, light-headedness and headaches. Psychiatric/Behavioral: Negative for agitation, behavioral problems and dysphoric mood. The patient is not nervous/anxious. Objective: BP 124/64 (BP Location: Left arm, BP Position: Sitting) Temp 97.5 F (36.4 C) Resp 18 Wt 57 kg (125 lb 9.6 oz) BMI 20.27 kg/m Smoking Status Never Smoker Body mass index is 20.27 kg/m . Physical Exam Constitutional: Appearance: Normal appearance. She is well-developed. Genitourinary: Vulva normal. No vaginal discharge. Right Adnexa: tender and full. Right Adnexa: no mass present. Left Adnexa: tender. Left Adnexa: not full and no mass present. Cervix is nulliparous. No cervical motion tenderness. Uterus is tender. Levator ani is tender and obturator internus is tender. HENT: Head: Normocephalic. Eyes: Pupils: Pupils are equal, round, and reactive to light. Neck: Thyroid: No thyromegaly. Cardiovascular: Rate and Rhythm: Normal rate and regular rhythm. Heart sounds: Normal heart sounds. Pulmonary: Effort: Pulmonary effort is normal. Breath sounds: Normal breath sounds. Abdominal: General: Bowel sounds are normal. There is no distension. Palpations: Abdomen is soft. There is no mass. Tenderness: There is no abdominal tenderness. There is no guarding or rebound. Musculoskeletal: Cervical back: Normal range of motion and neck supple. Neurological: Mental Status: She is alert. Assessment: Brittani was seen today for Pelvic Pain (Going on for past month. Feels like getting worse. States cramping/back pain is constant. 5-6/10 on pain scale. Uses heating pad/hot shower with some relief. States having some issues with constipation. ) Impression: ICD-10-CM 1. Pelvic and perineal pain R10.2 US TRANSVAGINAL LIMITED 2. Encounter for gynecological examination with abnormal finding Z01.411 CERVICAL OR VAGINAL CYTOPATH PAP SMEAR 3. Dysuria R30.0 URINE CULTURE POCT URINE DIPSTICK AUTOMATED 4. Screen for sexually transmitted diseases Z11.3 CT NG PROBE THIN PREP Plan: 1. Ultrasound ordered, bedside ultrasound revealed septated simple cyst on right ovary 2. Pap and pelvic exam completed 3. STD screening completed Offered pt Rx for ibuprofen. Will use OTC 800 mg TID Call if pain worsens Requested Prescriptions No prescriptions requested or ordered in this encounter Follow Up: Disposition: No disposition on file. Return for Routine Exam in 1 year BEVERLY Cool documented in this encounter [facility] 02-04-2021 History of Present illness Narrative CHIEF COMPLAINT Chief Complaint Patient presents with Annual Exam states needing Hep B titers. HPI Brittani Bundy is a 20 y.o. female presents to clinic for annual visit with request for Hep B titer orders and serum TB testing to replace the PPD. She will be starting clinical immediately @ [facility] Monday. Pt denies issues with OCP, would like to remain on current pill. Denies any vaginal issues including vaginal discharge. REVIEW OF SYSTEMS Review of Systems Constitutional: Negative. Negative for activity change, fatigue and unexpected weight change. Eyes: Negative. Respiratory: Negative. Negative for cough, shortness of breath and wheezing. Cardiovascular: Negative. Negative for chest pain, palpitations and leg swelling. Gastrointestinal: Negative. Negative for abdominal distention, abdominal pain, constipation and diarrhea. Endocrine: Negative. Genitourinary: Negative for difficulty urinating, frequency, menstrual problem, vaginal discharge and vaginal pain. Musculoskeletal: Negative for arthralgias and myalgias. Allergic/Immunologic: Negative. Neurological: Negative for dizziness, syncope and light-headedness. Psychiatric/Behavioral: Negative. Negative for agitation, dysphoric mood and sleep disturbance. The patient is not nervous/anxious. See HPI for further details. Review of systems reviewed and otherwise negative. PAST MEDICAL HISTORY No past medical history on file. FAMILY HISTORY Family History Problem Relation Age of Onset No known problems Mother No known problems Father SOCIAL HISTORY Social History Socioeconomic History Marital status: Single Spouse name: Not on file Number of children: Not on file Years of education: Not on file Highest education level: Not on file Occupational History Not on file Tobacco Use Smoking status: Never Smoker Smokeless tobacco: Never Used Vaping Use Vaping Use: Never used Substance and Sexual Activity Alcohol use: Never Drug use: Never Sexual activity: Not Currently Partners: Male control/protection: None Other Topics Concern Service Not Asked Blood Transfusions Not Asked Caffeine Concern Not Asked Occupational Exposure Not Asked Hobby Hazards Not Asked Sleep Concern Not Asked Stress Concern Not Asked Weight Concern Not Asked Special Diet Not Asked Back Care Not Asked Exercise Not Asked Bike Helmet Not Asked Seat Belt Not Asked Domestic Violence Not Asked Social History Narrative Not on file Social Determinants of Health Financial Resource Strain: Difficulty of Paying Living Expenses: Food Insecurity: Worried About Running Out of Food in the Last Year: Ran Out of Food in the Last Year: Transportation Needs: Lack of Transportation (Medical): Lack of Transportation (Non-Medical): Physical Activity: Days of Exercise per Week: Minutes of Exercise per Session: Stress: Feeling of Stress : Social Connections: Frequency of Communication with Friends and Family: Frequency of Social Gatherings with Friends and Family: Attends Jainism Services: Active Member of Clubs or Organizations: Attends Club or Organization Meetings: Marital Status: Intimate Partner Violence: Fear of Current or Ex-Partner: Emotionally Abused: Physically Abused: Sexually Abused: SURGICAL HISTORY No past surgical history on file. CURRENT MEDICATIONS Current Outpatient Medications Medication Sig levonorgestrel-ethinyl estradiol 0.1-20 MG-MCG tablet Take 1 tablet by mouth daily. ALLERGIES No Known Allergies PHYSICAL EXAM Physical Exam Vitals and nursing note reviewed. Constitutional: Appearance: Normal appearance. She is normal weight. HENT: Head: Normocephalic. Right Ear: External ear normal. Left Ear: External ear normal. Nose: Nose normal. Mouth/Throat: Mouth: Mucous membranes are moist. Eyes: Extraocular Movements: Extraocular movements intact. Pupils: Pupils are equal, round, and reactive to light. Cardiovascular: Rate and Rhythm: Normal rate and regular rhythm. Pulses: Normal pulses. Heart sounds: Normal heart sounds. Pulmonary: Effort: Pulmonary effort is normal. Breath sounds: Normal breath sounds. Abdominal: General: There is no distension. Palpations: Abdomen is soft. There is no mass. Tenderness: There is no abdominal tenderness. Genitourinary: Comments: Deferred Musculoskeletal: General: No swelling. Normal range of motion. Cervical back: Normal range of motion. Right lower leg: No edema. Left lower leg: No edema. Skin: General: Skin is warm. Capillary Refill: Capillary refill takes less than 2 seconds. Neurological: Mental Status: She is alert. Psychiatric: Mood and Affect: Mood normal. Behavior: Behavior normal. Thought Content: Thought content normal. Judgment: Judgment normal. VITAL SIGNS: BP 118/64 (BP Location: Left arm, BP Position: Sitting) Temp 98 F (36.7 C) Resp 18 Wt 57.6 kg (127 lb) BMI 20.50 kg/m Smoking Status Never Smoker LABS/RADIOLOGY/PROCEDURES Pertinent Labs & Imaging studies reviewed. (See chart for details) No results found for this visit on 02/04/21. No orders to display Current Outpatient Medications: levonorgestrel-ethinyl estradiol 0.1-20 MG-MCG tablet, Take 1 tablet by mouth daily., Disp: 84 tablet, Rfl: 3 Orders Placed This Encounter Procedures M TUBERCULOSIS BY QUANTIFERON, BLD Standing Status: Future Standing Expiration Date: 02/04/2022 HEPATITIS B SURFACE ANTIBODY Standing Status: Future Standing Expiration Date: 02/04/2022 HEPATITIS B SURFACE ANTIGEN Standing Status: Future Standing Expiration Date: 02/04/2022 FINAL IMPRESSION ICD-10-CM 1. Encounter for gynecological examination with abnormal finding Z01.411 2. Encounter for vaccination Z23 3. Dysmenorrhea N94.6 PLAN 1. 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 Dysmenorrhea 3. Encounter for gynecological examination with abnormal finding Roberthe sent to pharmacy of choice Pt to call office with any issues or concerns RTC x 1 year for annual physical, Pap and Pelvic will be due at this visit. Electronically Signed By: Danuta Maciel NP student Subjective: Brittani Bundy is a 20 y.o. female here for routine exam. Current Complaints: Here for annual exam. Needs refill on OCP, working well for period control. Gynecologic History Patient's last menstrual period was 01/15/2021 (exact date). regular q month without intermenstrual spotting. Vaginal Discharge: Denies vaginal discharge Social History Substance and Sexual Activity Sexual Activity Not Currently Partners: Male control/protection: None Pt not sexually active Last Pap: Reports last done never Results: normal Last Mammogram: patient has never had a mammogram Obstetrical History OB History Para Term AB Living 0 0 0 0 0 0 SAB TAB Ectopic Molar Multiple Live Births 0 0 0 0 0 0 Patient's medications, allergies, past medical, surgical, social and family histories were reviewed and updated as appropriate. Review of Systems Review of Systems Constitutional: Negative. HENT: Negative. Respiratory: Negative for chest tightness and shortness of breath. Cardiovascular: Negative for chest pain and palpitations. Gastrointestinal: Negative for abdominal distention, abdominal pain, blood in stool, constipation and diarrhea. Endocrine: Negative for cold intolerance. Genitourinary: Negative for difficulty urinating, dyspareunia, dysuria, flank pain, frequency, menstrual problem, pelvic pain, vaginal bleeding, vaginal discharge and vaginal pain. Musculoskeletal: Negative for arthralgias, back pain and joint swelling. Neurological: Negative for dizziness, light-headedness and headaches. Psychiatric/Behavioral: Negative for agitation, behavioral problems and dysphoric mood. The patient is not nervous/anxious. Objective: BP 118/64 (BP Location: Left arm, BP Position: Sitting) Temp 98 F (36.7 C) Resp 18 Wt 57.6 kg (127 lb) BMI 20.50 kg/m Smoking Status Never Smoker Body mass index is 20.5 kg/m . Physical Exam Constitutional: Appearance: She is well-developed. HENT: Head: Normocephalic. Eyes: Pupils: Pupils are equal, round, and reactive to light. Neck: Thyroid: No thyromegaly. Cardiovascular: Rate and Rhythm: Normal rate and regular rhythm. Pulmonary: Effort: Pulmonary effort is normal. No respiratory distress. Breath sounds: Normal breath sounds. No stridor. No wheezing. Chest: Chest wall: No tenderness. Abdominal: General: Bowel sounds are normal. There is no distension. Palpations: Abdomen is soft. There is no mass. Tenderness: There is no abdominal tenderness. There is no guarding. Musculoskeletal: General: Normal range of motion. Cervical back: Normal range of motion. Neurological: Mental Status: She is alert and oriented to person, place, and time. Skin: General: Skin is warm and dry. Psychiatric: Behavior: Behavior normal. Thought Content: Thought content normal. Judgment: Judgment normal. Assessment: Brittani was seen today for Annual Exam (states needing Hep B titers.) Impression: ICD-10-CM 1. Encounter for gynecological examination with abnormal finding Z01.411 2. Encounter for vaccination Z23 M TUBERCULOSIS BY QUANTIFERON, BLD HEPATITIS B SURFACE ANTIBODY HEPATITIS B SURFACE ANTIGEN 3. Dysmenorrhea N94.6 Plan: 1. Physical exam complete 2. Titers ordered for school 3. rx aviane x 1 year Requested Prescriptions No prescriptions requested or ordered in this encounter Follow Up: Disposition: No disposition on file. Return for Routine Exam in 1 year BEVERLY Cool documented in this encounter [facility] Evaluation note Diagnosis Encounter for gynecological examination with abnormal finding- Primary Routine gynecological examination Encounter for vaccination Dysmenorrhea [facility] Diagnosis Pelvic and perineal pain- Primary Unspecified symptom associated with female genital organs Encounter for gynecological examination with abnormal finding Routine gynecological examination Dysuria Screen for sexually transmitted diseases Screening examination for venereal disease documented [facility] this [facility]* Diagnosis Lower abdominal pain- Primary Abdominal pain, other specified site documented in this encounter [facility]* Diagnosis Muscle weakness- Primary Muscle weakness (generalized) documented in this encounter [facility]: evaluation note* Diagnosis Endometriosis determined by laparoscopy- Primary Dysmenorrhea Pelvic and perineal pain Unspecified symptom associated with female genital organs documented in this encounter [facility]: evaluation note* Diagnosis Drug eruption- Primary Dermatitis due to drugs and medicines taken internally Allergic reaction, initial encounter Facial swelling Swelling, mass, or lump in head and neck documented in this encounter [facility]: evaluation note* Diagnosis Endometriosis determined by laparoscopy- Primary Dysmenorrhea Pelvic and perineal pain Unspecified symptom associated with female genital organs documented in this encounter [facility]: evaluation note* Diagnosis Endometriosis- Primary Endometriosis, site unspecified documented in this encounter [facility] Reason for Referral Specialty Diagnoses / Procedures Referred By Jamey lira Referred To Contact Diagnoses Pelvic and perineal pain Procedures US TRANSVAGINAL LIMITED Latosha Ledesma, 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 [address] [place] [address] Referral ID Status Reason Start Date Expiration Date V isits Requested Visits Authorized [id number] Auth Not Needed 12/30/2021 01/24/2023 1 1 Summary Purpose Family History No Family History Records FoundNo Family History Records FoundNo Family History Records FoundNo Family History Records Found Advance Directives No Advanced Directives Records FoundNo Advanced Directives Records FoundNo Advanced Directives Records FoundNo Advanced Directives Records Found Additional Source Comments Reason for Visit (unrecogniz ed section and content) Reason Comments Annual Exam states needing Hep B titers. Reason Comments Pelvic Pain Going on for past mo nth. Feels like getting worse. States cramping/back pain is constant. 5-6/10 on pain scale. Uses heating pad/hot shower with some relief. States having some issues with constipation. Reason Comments Pelvic Pain Reason Comments Muscle Weakness States has been havi ng arm and leg muscle weakness along with headaches x 2 weeks. States is having some difficulty walking along with lower back pain. DOES NOT have any bladder or bowel incontinence. Denies chest pain, shortness of breath, or pain radiating down legs. Reason Comments Pelvic Pain 12/2021: appendectomy and FOE with dr. Nye03/2022: was on orilissa but stopped it this month d/t neuro deficits. All those deficits went away.07/2022: Periods very painful again. Back pain occurs prior to and after periods. Very painful to even sit in car and drive. Feels it is coming back, but not as painful as was. Reason Comments Allergic Reaction Pt to the ED via lob by with complaint of an allergic reaction. Pt stated she had a sore throat and they gave her an antibiotic for it. Pt state this morning she woke up and and her eyes were swollen so she took benadryl all day. Pt stated now her lips feel a little puffy. Pt denies difficulty breathing . Reason Comments Pelvic Pain Here today to discus s endometriosis. Has been doing depo provera 300mg since end of august 2022. States is on a 10 week rotation of injection. C/o shot wearing off toward 8 week lori. Care Teams (unrecognized sec tion and content) Analyst Relationship Specialty Start Date End Date Morris Leahy MD [address] [place] [address] PCP - General Family Medicine 10/31/18 Analyst Relationship Specialty Start Date End Date Morris Leahy MD [address] [place] [address] PCP - General Family Medicine 10/31/18 Analyst Relationship Specialty Start Date End Date Morris Leahy MD [address] [place] [address] PCP - General Family Medicine 10/31/18 Analyst Relationship Specialty Start Date End Date Morris Leahy MD [address] [place] [address] PCP - General Family Medicine 10/31/18 Analyst Relationship Specialty Start Date End Date Cory Nye MD [address] [facility] [address] [place] [address] PCP - General Obstetrics & Gynecology 06/05/23 Analyst Relationship Specialty Start Date End Date Cory Nye MD [address] [address] PCP - General Obstetrics & Gynecology 06/05/23 Analyst Relationship Specialty Start Date End Date Referring, SelfMD [address] [address] PCP - General Emergency Medicine 11/27/23 Analyst Relationship Specialty Start Date End Date Referring, MD Wayne [address] [address] PCP - General Emergency Medicine 11/27/23 Scheduled Active and Recently Administ ered Medications (unrecognized section and content) Medication Order 06/03/2023 06/04/2023 06/05/2023 diphenhydrAMINE (BENADRYL) injection 50 mg (COMPLETED) 50 mg, Intravenous, ONCE, 1 dose, On Mon06/05/23 at 0100 0051 (Given - Provid er: Froilan Evans RN) famotidine (PF) (PEPCID) injection 20 mg (COMPLETED) 20 mg, Intravenous, ONCE, 1 dose, On Mon06/05/23 at 0130, Administer undiluted by slow IV push at a rate not to exceed 10mg/min. 0056 (Given - Provid er: Froilan Evans RN) Ketorolac (TORADOL) injection 15 mg (COMPLETED) 15 mg, Intravenous, ONCE, 1 dose, On Mon06/05/23 at 0130 0123 (Given - Provid er: Froilan Evans RN) methylPREDNISolone Sodium Succ (SOLU-MEDROL) injection 125 mg (COMPLETED) 125 mg, Intravenous, ONCE, 1 dose, On Mon06/05/23 at 0100 0053 (Given - Provid er: Froilan Evans RN) Sodium chloride 0.9% IV solution 1,000 mL (COMPLETED) 1,000 mL, Intravenous, ONCE, 1 dose, On 06/05/23 at 0100, Give bolus. For hydration 0102 ($$New Bag$$ - Provider: Froilan Evans RN)0152 (Stopped - Provider: Froilan Evans RN) INFORMATION SOURCE (unrecogn ized section and content) DATE CREATED AUTHOR 07/10/2023 [facility] DATE CREATED AUTHOR AUTHOR'S ORGANIZ ATION 11/27/2023 [facility] DATE CREATED AUTHOR AUTHOR'S ORGANIZ ATION 08/04/2024 [facility] DATE CREATED AUTHOR AUTHOR'S ORGANIZ ATION 04/18/2025 [facility] FOR RECORDS PERTAINING TO PATIENTS WHO ARE OR HAVE BEEN ENROLLED IN A CHEMICAL DEPENDENCY/SUBSTANCEABUSE PROGRAM, SOME INFORMATION MAY BE OMITTED. This clinical summary was aggregated from multiple sources. Caution should be exercised in using it in the provision of clinical care. This summary normalizes information from multiple sources, and as a consequence, information in this document may materially change the coding, format and clinical context of patient data. In addition, data may be omitted in some cases. CLINICAL DECISIONS SHOULD BE BASED ON THE PRIMARY CLINICAL RECORDS. [email or web address] [facility]. provides no warranty or guarantee of the accuracy or completeness of information in this document.
--- NOTE | 2025-05-10 10:19 | US_ITS ---
PROCEDURE: PELVIC W/ TRANSVAGINAL REASON FOR EXAM: INFERTILITY TECHNIQUE: Procedure Code: [id number] Modality: US Procedure: PELVIC W/ TRANSVAGINAL COMPARISON: None FINDINGS: Measurements: Uterus: 6.6 cm x 4.1 cm x 3.3 cm with a volume of 45.8 mL Endometrial Thickness: 11 mm. It is hyperechoic. Right Ovary: 3.7 cm x 3.8 cm x 2.5 cm with a volume of 18.5 mL. Left Ovary: 3.8 cm x 3.6 cm x 2.4 cm with a volume of 17.5 mL. TRANSABDOMINAL: Uterus: Normal size, myometrial echotexture, and contour. Endometrium: Unremarkable. Right ovary: Normal size and echotexture. Left ovary: Normal size and echotexture. Other: No large pelvic mass identified. Transvaginal sonography was performed to better visualize the endometrium. TRANSVAGINAL: Uterus: Anteverted. Normal contour and myometrial echotexture. Endometrium: Normal echotexture. Right ovary: Normal size and echotexture. Left ovary: Normal size and echotexture. Other adnexal findings: None. Cul-de-sac: No free intraperitoneal fluid identified. Tenderness: No tenderness US/Pelvic w/ Transvaginal IMPRESSION: NORMAL TRANSABDOMINAL AND TRANSVAGINAL PELVIC ULTRASOUND. Reading Location: [place] [address]
== END | disposition home or self-care (01) ==
PROVIDERS: PCP Nurse Practitioner Family; Referring Provider Nurse Practitioner Family; Visit Provider Nurse Practitioner Family
DX: Z31.69 Encounter for other general counseling and advice on procreation (principal); N80.9 Endometriosis, unspecified; N91.2 Amenorrhea, unspecified
CPT/HCPCS: 76830; 76856